=== PATIENT | male | born 1965 | race Caucasian/White ===

== ENCOUNTER 2018-03-08 19:00 | Emergency (ER) | payer OTHER ==
[~2018-03-08] VITALS: Ht 170.2 cm; Wt 99.8 kg
[~2018-03-08 19:00] MED LIST: CLON0.5T PO; DOXE50CA10 PO; LISI-420 PO; TRAM50TA1 PO
[2018-03-08 19:29] VITALS: BP 125/84
[2018-03-08] MEDS ORDERED: OXYC40TE66 PO (19:33)
--- NOTE | 2018-03-08 19:34 | NUR ---
PT RETURNED TO LOBBY
--- NOTE | 2018-03-08 20:19 | NUR ---
PT TO BED 04 VIA W/C.
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
--- NOTE | 2018-03-08 21:05 | NUR ---
ASSUMED CARE OF PT AT THIS TIME. PT AWAITS MD MCKINLEY. [place]. VSS. WILL CONTINUE TO MONITOR.
[2018-03-08] MEDS ORDERED: KETOROLAC 60 MG/2 ML VIAL IM ONE (21:30)
--- NOTE | 2018-03-08 21:38 | NUR ---
pt taken to xray
[2018-03-08 22:55] VITALS: BP 122/88
--- NOTE | 2018-03-08 22:55 | NUR ---
Patient discharged with v/s stable. Written and verbal after care instructions given and explained. Patient alert, oriented and verbalized understanding of instructions. Wheel Chair Assisted with to car. All questions addressed prior to discharge. ID band removed. Patient advised to follow up with PMD. Rx of ROBAXIN, MOTRIN, AND LIDODERM given. Patient educated on indication of medication including possible reaction and side effects. Opportunity to ask questions provided and answered.
== END 2018-03-08 22:55 | disposition home or self-care (01) ==
LOC: MED 19:00
DX: S43.401A Unspecified sprain of right shoulder joint, initial encounter (principal); M25.551 Pain in right hip; M54.5 Low back pain; I10 Essential (primary) hypertension; Z88.5 Allergy status to narcotic agent; Z88.8 Allergy status to other drugs, medicaments and biological substances; Z79.899 Other long term (current) drug therapy; W19.XXXA Unspecified fall, initial encounter; Y93.89 Activity, other specified; Y92.89 Other specified places as the place of occurrence of the external cause; Y99.8 Other external cause status
CPT/HCPCS: 73030; 73502; 96372; 99284; J1885

== ENCOUNTER 2018-06-29 23:20 | Inpatient (IN) | payer OTHER ==
[~2018-06-29] VITALS: Ht 172.7 cm; Wt 133.4 kg
[2018-06-29 23:20] VITALS: BP 111/72
[~2018-06-29 23:20] MED LIST changes: -CLON0.5T PO; -DOXE50CA10 PO; -LISI-420 PO; +OXYC40TE66 PO; -TRAM50TA1 PO
--- NOTE | 2018-06-29 23:20 | NUR ---
PT BIBA FOR ETOH AND 5150. PT STATED HE TOOK 5 GABBAPENTIN. PT WAS PUT ON A HOLD BY [facility] FOR SUICIDAL IDEATION. PT STATED IN ER THAT HE WAS NOT INTENDIING TO HARM SELF. PT HAS SOME ALOC AT TIMES. DIFFICULT TO AROUSE AT TIMES. PT STATED HE DID DRINK ALCOHOL, IT BRENDON UNCLEAR THE MEASUREMENTOF ALCOHOL INTAKE AT THIS TIME. PATIENT STATES PAIN OF 0/10 AT THIS TIME; VSS; PATIENT POSITIONED FOR COMFORT; HOB ELEVATED; BEDRAILS UP X2; BED DOWN. ER MD MADE AWARE OF PT STATUS.
--- NOTE | 2018-06-29 23:20 | NUR ---
PATIENT BIB BLS ON 5150 HOLD TO ER BED 5.
--- NOTE | 2018-06-29 23:25 | NUR ---
PT SITTING UP IN BED, VITALS STABLE. COMFORT MEASURES OFFERRED. PT TOLERATED WELL.
--- NOTE | 2018-06-29 23:30 | NUR ---
CONTACTED POISON CONTROL, SPOKE WITH ANNALISA. RECOMMENDED LABS DRAWN, MONITOR PATIENT 4-6 HOURS. Addendum: 06/29/18 at 2338 by MEDVAUGHNV CONTACTED POISON CONTROL, SPOKE WITH ANNALISA. RECOMMENDED LABS DRAWN, MONITOR PATIENT 4-6 HOURS, FLUID BOLUS.
--- NOTE | 2018-06-29 23:58 | NUR ---
EKG PERFORMED AT BEDSIDE. PT COVERED IN GOWN DURING PROCEDURE.
[2018-06-30 00:19] LABS: BASOPHILS # (AUTO) 0.2 K/uL (0.00-0.22); HEMATOCRIT 33.9 % (36-52); HEMOGLOBIN 11.5 g/dL (12.0-18.0); LYMPHOCYTES # (AUTO) 1.4 K/uL (2.0-11.5); LYMPHOCYTES % (AUTO) 24.4 % (20.5-51.1); MEAN CORPUSCULAR HEMOGLOBIN 31 pg (27-31); MEAN CORPUSCULAR HGB CONC 34 g/dL (33-37); MEAN CORPUSCULAR VOLUME 92.6 fL (80-94); MONOCYTES # (AUTO) 0.5 K/uL (0.8-1.0); MONOCYTES % (AUTO) 8.5 % (1.7-9.3); NEUTROPHILS # (AUTO) 2.7 K/uL (1.8-7.7); NEUTROPHILS % (AUTO) 47.3 % (42.2-75.2); PLATELET COUNT (AUTO) 291 K/uL (140-450); RED BLOOD CELL COUNT(AUTO) 3.66 MIL/uL (4.20-6.10); RED CELL DISTRIBUTION WIDTH 13.4 % (11.6-13.7); WHITE BLOOD COUNT (AUTO) 5.8 K/uL (4.8-10.8)
[2018-06-30 00:28] LABS: ANION GAP 14.9 (8-16); CARBON DIOXIDE 22.5 mmol/L (21-32); CHLORIDE 104 mmol/L (98-107); CREATININE 0.6 mg/dL (0.7-1.3); GFR ARICAN-AMERICAN 183 mL/min (>90); GLUCOSE 105 mg/dL (74-106); POTASSIUM 3.4 mmol/L (3.5-5.1); SODIUM SERUM 138 mmol/L (136-145); UREA NITROGEN, BLOOD 16 mg/dL (7-18)
[2018-06-30 00:30] LABS: EOSINOPHILS % (AUTO) 16.8 % (0.0-4.0)
--- NOTE | 2018-06-30 00:30 | NUR ---
PT SLEEPING, VITALS STABLE. MD AWARE OF STATUS.
[2018-06-30 00:34] LABS: ALBUMIN 3.6 g/dL (3.4-5.0); ASPARTATE AMINOTRANSFERASE 58 U/L (15-37); TOTAL BILIRUBIN 0.3 mg/dL (0.0-1.0)
[2018-06-30 00:35] LABS: ACETAMINOPHEN < 0.5 ug/ml (10-30); SALICYLATE < 2.8 mg/dL (2.8-20.0)
[2018-06-30 00:50] LABS: APPEARANCE,URINE CLEAR (CLEAR); BILIRUBIN,URINE 1+ (NEGATIVE); BLOOD, URINE TRACE-I (NEGATIVE); COLOR,URINE YELLOW (YELLOW); LEUKOCYTE ESTERASE ,URINE NEGATIVE (NEGATIVE); NITRITE, URINE NEGATIVE (NEGATIVE); PH,URINE 6.5 (5.0-9.0); UGLUCOSE NEGATIVE (NEGATIVE)
[2018-06-30 00:57] LABS: BARBITURATE, URINE NEG. ng/ml (NEG <=200); BENZODIAZEPINE, URINE NEG. ng/mL (NEG <=200); CANNABINOID, URINE NEG. ng/mL (NEG <=50); COCAINE, URINE NEG. ng/mL (NEG <=300); OPIATE, URINE NEG. ng/mL (NEG <=2000); PHENCYCLIDINE SCREEN,URINE POS. ng/mL (NEG <=25)
[2018-06-30 01:00] LABS: RBC,URINE 3-10 (FEW) /HPF (0-5); WBC,URINE 0-5 (RARE) /HPF (0-5)
--- NOTE | 2018-06-30 01:31 | NUR ---
PT IS SLEEPING IN [facility] AT THIS TIME. VITALS ARE STABLE. NOTIFED
--- NOTE | 2018-06-30 03:00 | NUR ---
PT SLEEPING IN BED, VITALS STABLE
--- NOTE | 2018-06-30 04:00 | NUR ---
PT SITTING UP IN BED, VITALS STABLE. WAITNG TRANSFER TO THE FLOOR
--- NOTE | 2018-06-30 04:30 | NUR ---
SPOKE TO KAEL FROM POISON CONTROL TO GIVE AN UPDATED STATUS ON PT. PT VITALS STABLE . MADE AWARE.
--- NOTE | 2018-06-30 04:38 | NUR ---
SPOKE TO DR. MCCAULEY FOR PT PLACEMENT. MADE AWARE OF STATUS.
--- NOTE | 2018-06-30 05:11 | NUR ---
EKG PERFORMED AT BEDSIDE. PT COVERED IN GOWN AND BLANKET WITH RN PRESENT.
--- NOTE | 2018-06-30 05:15 | NUR ---
Patient will be admitted to care of . Admited to med surg . Will go to room 109 B. Belongings list completed. Report to tracy bal. vitals stable.
--- NOTE | 2018-06-30 05:15 | NUR ---
Pt report given to RONNELL ARMSTRONG. Transfer of care at this time. VITALS STABLE
[2018-06-30 05:20] VITALS: BP 97/64
--- NOTE | 2018-06-30 05:20 | NUR ---
REPORT RECEIVED FROM ED NURSE AT BEDSIDE. PT ALOC UPON ARRIVAL. ABLE TO GET UP AND WALK FROM [place] TO BED. SLEPT INSTANTANEOUSLY. IV SITE R AC 20G PATENT AND INTACT. SKIN WARM, DRY, AND INTACT. BED LOCKED IN LOW POSITION. PT 51/50.
[2018-06-30] MEDS ORDERED: NACL 0.9% 1,000 ML IV SCH ×2 (05:45→05:50)
--- NOTE | 2018-06-30 05:45 | NUR ---
AMRIT VANESSA RETURNED PHONE CALL. TORB FOR REGULAR DIET AND NS @ 65ML/HR. ORDER IN.
[2018-06-30] MEDS ORDERED: NACL 0.9% 2,000 ML IV ONE (05:50)
--- NOTE | 2018-06-30 07:05 | NUR ---
ASSUMED CONTINUITY OF CARE. NO SIGNS AND SYMPTOMS OF ACUTE DISTRESS NOTICED. INITIAL ASSESSMENT DONE. CALM, QUIET AND COOPERATIVE. NO SUICIDAL THOUGHTS MANIFESTED. KEEP ENVIRONMENT SAFE AND CLOSELY MONITORED BY ALCIDES RUSSELL FOR SUICIDAL PREVENTION.
--- NOTE | 2018-06-30 07:05 | NUR ---
REPORT GIVEN TO AM NURSE AT BEDSIDE. PT IN STABLE CONDITION.
[2018-06-30 08:00] VITALS: BP 120/82
--- NOTE | 2018-06-30 08:00 | NUR ---
Patient's Plan of Care was discussed and reviewed with DECORATOR STORE: DANIEL SERRA
[2018-06-30] MEDS ORDERED: HYDROcodone/APAP 5/325 MG 1 TAB TAB PO PRN (08:50)
--- NOTE | 2018-06-30 09:10 | NUR ---
PATIENT HAS BEEN SCREENED AND CATEGORIZED LOW NUTRITION RISK. PATIENT WILL BE SEEN WITHIN 7 DAYS OF ADMISSION. 07/06/[address]
[2018-06-30] MEDS ORDERED: TRIH2TAB21 PO (11:24)
[2018-06-30] MEDS ORDERED: CLON0.5T PO (11:24)
[2018-06-30 12:00] VITALS: BP 116/67
[2018-06-30] MEDS ORDERED: clonazePAM 0.5 MG TAB PO SCH (13:00)
[2018-06-30] MEDS ORDERED: TRIHEXYPHENIDYL 2 MG TAB PO SCH (13:00)
--- NOTE | 2018-06-30 15:27 | NUR ---
DR. GARIBAY CAME FOR PT. PSYCH EVAL, REVIEWED PT. CHART AND SPOKE TO PT. AT BEDSIDE. PT. CALM AND COOPERATIVE.
--- NOTE | 2018-06-30 15:30 | NUR ---
CM NOTE INITIAL REVIEW FAXED TO [phone] VAUGHN OLIVO # [phone]
--- NOTE | 2018-06-30 15:58 | NUR ---
PER DR. GARIBAY, PT. CLEARED AND CAN BE D/C HOME. INFORMED CHARGE NURSE JAIRO KISER.
--- NOTE | 2018-06-30 16:07 | NUR ---
CHARGE NURSE JAIRO ROSSI -PATTI CALLED DR. IRVING REGARDING PT. D/C ORDER.
[2018-06-30] MEDS ORDERED: INFLUENZA VIRUS VACCINE QUAD 0.5 ML SYR IMVAC SCH (16:15)
[2018-06-30] MEDS ORDERED: PNEUMOCOCCAL VACCINE 23 MCG/0.5 ML VIAL IMVAC SCH (16:15)
--- NOTE | 2018-06-30 16:55 | NUR ---
D/C HOME, AMBULATORY AND HAD STEADY GAIT. AWAKE, ALERT, AND ORIENTED X4. SPEECH CLEAR. NO C/O PAIN. NO SOB, NOTED. CALM AND COOPERATIVE. NO SUICIDAL THOUGHTS OBSERVED. IN STABLE CONDITION. INFORMED CHARGE NURSE JAIRO KISER.
== END 2018-06-30 16:55 | disposition home or self-care (01) | DRG 817 ==
LOC: MED 23:20 → MTU 06-30 04:40
PROVIDERS: ADMIT Hospitalist; ATTEND Hospitalist
DX: T42.6X2A Poisoning by other antiepileptic and sedative-hypnotic drugs, intentional self-harm, initial encounter (principal); G20 Parkinson's disease; R45.851 Suicidal ideations; F32.9 Major depressive disorder, single episode, unspecified; F41.0 Panic disorder [episodic paroxysmal anxiety]; F41.1 Generalized anxiety disorder; M06.9 Rheumatoid arthritis, unspecified; F19.10 Other psychoactive substance abuse, uncomplicated; G89.29 Other chronic pain; M54.9 Dorsalgia, unspecified; F29 Unspecified psychosis not due to a substance or known physiological condition; I10 Essential (primary) hypertension; Z88.5 Allergy status to narcotic agent; Z88.8 Allergy status to other drugs, medicaments and biological substances; Y92.89 Other specified places as the place of occurrence of the external cause; Z79.899 Other long term (current) drug therapy; Z87.891 Personal history of nicotine dependence
CPT/HCPCS: 36415; 71045; 80053; 80299; 80305; 81001; 85025; 87081; 90658; 90732; 93005; 96360; 96361; 99291; G0480; G0482; Q0092

== ENCOUNTER 2018-07-26 17:51 | Inpatient (IN) | payer OTHER ==
[~2018-07-26] VITALS: Ht 175.3 cm; Wt 81.2 kg
[~2018-07-26 17:51] MED LIST changes: +CLON0.5T PO; +TRIH2TAB21 PO
--- NOTE | 2018-07-26 17:51 | NUR ---
Patient BIBA BLS, transferred to bed 6. RN evaluating patient at bedside.
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
[2018-07-26 18:01] VITALS: BP 103/63
--- NOTE | 2018-07-26 18:16 | NUR ---
OFFICER [employer] NOTIFIED SUICIDAL IDEATION BOX NOT CHECKED ALTHOUGH DOCUMENTED PT INTENTIONALLY TOOK PILLS FOR HARM TO SELF --OFFICER WILL COME TO ER TO ADD TO HOLD
--- NOTE | 2018-07-26 18:24 | NUR ---
SPOKE WITH POISON CONTROL [id number] TIGIST SUPPORTIVE MEASURES, DOES NOT ENCOURAGE CHARCOAL OR FLUMAZENIL ONSET IS FAST . OBSERVATION 4-6HRS; --LABS TYLENOL, ASA, CBC, BMP, UTOX
--- NOTE | 2018-07-26 18:30 | NUR ---
DR. GEMMA GARCIA AWARE OF POISON CONTROLS SUGGESTION, DR. MENENDEZ REFUSED SUGGESTIONS. AWAITING DR TOBAR.
[2018-07-26 18:48] LABS: BASOPHILS # (AUTO) 0.1 K/uL (0.00-0.22); BASOPHILS % (AUTO) 0.8 % (0.0-2.0); EOSINOPHILS # (AUTO) 0.6 K/uL (0-0.4); HEMATOCRIT 35.8 % (36-52); HEMOGLOBIN 12.1 g/dL (12.0-18.0); LYMPHOCYTES # (AUTO) 1.3 K/uL (2.0-11.5); LYMPHOCYTES % (AUTO) 17.3 % (20.5-51.1); MEAN CORPUSCULAR HEMOGLOBIN 31 pg (27-31); MEAN CORPUSCULAR HGB CONC 34 g/dL (33-37); MEAN CORPUSCULAR VOLUME 91.4 fL (80-94); MONOCYTES # (AUTO) 0.6 K/uL (0.8-1.0); MONOCYTES % (AUTO) 7.6 % (1.7-9.3); NEUTROPHILS # (AUTO) 5.1 K/uL (1.8-7.7); NEUTROPHILS % (AUTO) 66.3 % (42.2-75.2); PLATELET COUNT (AUTO) 356 K/uL (140-450); RED BLOOD CELL COUNT(AUTO) 3.92 MIL/uL (4.20-6.10); RED CELL DISTRIBUTION WIDTH 13.4 % (11.6-13.7); WHITE BLOOD COUNT (AUTO) 7.8 K/uL (4.8-10.8)
[2018-07-26 18:58] LABS: BARBITURATE, URINE NEG. ng/ml (NEG <=200); BENZODIAZEPINE, URINE NEG. ng/mL (NEG <=200); CANNABINOID, URINE NEG. ng/mL (NEG <=50); COCAINE, URINE NEG. ng/mL (NEG <=300); PHENCYCLIDINE SCREEN,URINE NEG. ng/mL (NEG <=25)
[2018-07-26 19:00] LABS: ANION GAP 11.4 (8-16); CARBON DIOXIDE 26.5 mmol/L (21-32); CREATININE 0.8 mg/dL (0.7-1.3); POTASSIUM 3.9 mmol/L (3.5-5.1)
[2018-07-26 19:07] LABS: ACETAMINOPHEN < 0.5 ug/ml (10-30); SALICYLATE < 2.8 mg/dL (2.8-20.0)
--- NOTE | 2018-07-26 19:10 | NUR ---
Patient appears to be resting comfortably in bed. Vital Signs within normal limits. Respirations even and unlabored. Sitter at bedside
[2018-07-26 19:16] LABS: OPIATE, URINE NEGATIVE ng/mL (NEG <=2000)
[2018-07-26] MEDS ORDERED: NACL 0.9% 1,000 ML IV ONE (19:40)
--- NOTE | 2018-07-26 20:00 | NUR ---
Patient appears to be resting comfortably in bed. Vital Signs within normal limits. Respirations even and unlabored. Sitter at bedside
--- NOTE | 2018-07-26 21:00 | NUR ---
Patient appears to be resting comfortably in bed. Vital Signs within normal limits. Respirations even and unlabored. Sitter at bedside
--- NOTE | 2018-07-26 21:17 | NUR ---
POISON CONTROL CALLED FOR UPDATE ON PT. 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 ER MADE AWARE
--- NOTE | 2018-07-26 22:00 | NUR ---
Patient appears to be resting comfortably in bed. Vital Signs within normal limits. Respirations even and unlabored.
--- NOTE | 2018-07-26 23:00 | NUR ---
Patient appears to be resting comfortably in bed. Vital Signs within normal limits. Respirations even and unlabored. Sitter at bedside
--- NOTE | 2018-07-27 00:10 | NUR ---
Patient appears to be resting comfortably in bed. Vital Signs within normal limits. Respirations even and unlabored. Sitter at bedside
--- NOTE | 2018-07-27 01:36 | NUR ---
Patient appears to be resting comfortably in bed. Vital Signs within normal limits. Respirations even and unlabored. Sitter at bedside
--- NOTE | 2018-07-27 02:00 | NUR ---
PT AWAKE AND AOX4 STATES " I DID NOT TAKE THOSE PILLS, I WAS JUST TRYING TO MAKE MY MAD"
--- NOTE | 2018-07-27 02:30 | NUR ---
DR BALDWIN PSCYHIATRIST RECOMMENDED INPATIENT PSYCH. ER MD MADE AWARE
--- NOTE | 2018-07-27 02:50 | NUR ---
PT HAD AN ~20 SECS SEIZURE LIKE ACTIVITY, AIRWAY CLEAR AND PROTECTED. ER MD AT BEDSIDE TO GIVE 1MG ATIVAN IVP. PT AOX4, GCS 15, NO S/S OF POSTICTAL
[2018-07-27] MEDS ORDERED: LORazepam 2 MG/ML VIAL ONE (02:57)
[2018-07-27] MEDS ORDERED: LORazepam 2 MG/ML VIAL IVP ONE (03:00)
--- NOTE | 2018-07-27 03:50 | NUR ---
Patient appears to be resting comfortably in bed. Vital Signs within normal limits. Respirations even and unlabored. Sitter at bedside
--- NOTE | 2018-07-27 04:50 | NUR ---
Patient appears to be resting comfortably in bed. Vital Signs within normal limits. Respirations even and unlabored. Sitter at bedside
[2018-07-27 05:45] VITALS: BP 95/45
--- NOTE | 2018-07-27 05:45 | NUR ---
RECEIVED PT FROM ER BEDSIDE REPORT ENDORSED. ON 5150 WITH SITTER. PT AWAKE, ALERT AND ORIENTED X 4. CALM, AND ABLE TO VERBALIZE NEEDS. NO AGITATION NOTED AT THIS TIME. PT'S BED AT LOWEST POSITION. VITAL SIGNS WILL BE TAKEN. WILL CONTINUE TO MONITOR
--- NOTE | 2018-07-27 05:55 | NUR ---
Patient will be admitted to [facility]. Admited to MS. Will go to room 109B. Belongings list completed. Report to JANEL ARMSTRONG.
--- NOTE | 2018-07-27 07:11 | NUR ---
ENDORSED TO AM SHIFT BEDSIDE NOTES. LEFT PT SLEEPING. PT CALM. NO SUICIDAL IDEATION NOTED.
--- NOTE | 2018-07-27 07:15 | NUR ---
RECEIVED PT REPORT AT BEDSIDE FROM BRICK SETTER NURSE. PT IS CURRENTLY ASLEEP IN BED. NO S/S OF DISTRESS NOTED AT THIS TIME. IV SITE NOTED IN L AC, 20 GAUGE. PT ON ROOM AIR. BED IS IN LOW POSITION. WILL CONTINUE TO MONITOR.
[2018-07-27 07:28] VITALS: BP 114/45
[2018-07-27 08:00] VITALS: BP 101/61
--- NOTE | 2018-07-27 08:20 | NUR ---
PT DENIES ANY HX OF SEIZURES, STATES "I'VE NEVER HAD A SEIZURE IN MY LIFE"
--- NOTE | 2018-07-27 10:18 | NUR ---
PT IS SITTING QUIETLY ON THE SIDE OF THE BED. NO AGITATION OR COMBATIVE BEHAVIOR. NO S/S OF ACUTE DISTRESS AT THIS TIME. PT FINISHED ALL OF HIS BREAKFAST. CONTINUING TO MONITOR.
--- NOTE | 2018-07-27 10:35 | NUR ---
PT SEEN BY DR. ROMAN
[2018-07-27] MEDS: TRIHEXYPHENIDYL 2 MG TAB PO SCH ×2 (12:11→16:14)
[2018-07-27] MEDS: clonazePAM 0.5 MG TAB PO SCH ×2 (12:13→16:15)
--- NOTE | 2018-07-27 12:23 | NUR ---
PT EATING LUNCH AT THIS TIME. PT NOT AGITATED OR COMBATIVE. BEHAVIOR APPROPRIATE. NO S/S OF DISTRESS, NO C/O PAIN. CONTINUING TO MONITOR.
--- NOTE | 2018-07-27 14:14 | NUR ---
PT ASLEEP AT THIS TIME. PT FINISHED 100% OF HIS LUNCH. NO AGITATION OR COMBATIVENESS, NO S/S OF DISTRESS NOTED. CONTINUING TO MONITOR.
[2018-07-27 15:57] VITALS: BP 113/73
--- NOTE | 2018-07-27 16:29 | NUR ---
PT ALERT AND AWAKE, AND CALM. PT REQUESTED SOME MAGAZINES TO READ TO PASS TIME. VITAL SIGNS STABLE. NO S/S OF DISTRESS. CONTINUING TO MONITOR.
--- NOTE | 2018-07-27 18:39 | NUR ---
PT SEEN BY DR. GAVIRIA. PER DR. GAVIRIA, HE WANTS TO KEEP THE PT ON HOLD FOR FURTHER OBSERVATION.
--- NOTE | 2018-07-27 19:14 | NUR ---
PT REPORT GIVEN TO ENGINE RESEARCH ENGINEER NURSE AT BEDSIDE. PT ENDORSED IN A STABLE CONDITION. SITTER WITH PATIENT.
--- NOTE | 2018-07-27 19:15 | NUR ---
RECEIVED PATIENT AWAKE RESTING. 1:1 SITTER FOR CLOSE OBSERVATION FOR SAFETY. EXPLAINED PLAN OF CARE AND VERBALIZED UNDERSTANDING. BED IN LOW LOCKED. POSITION. SI PRECAUTION APPLIED. WILL CONTINUE TO MONITOR.
[2018-07-27 20:00] VITALS: BP 124/78
--- NOTE | 2018-07-27 21:00 | NUR ---
V/S TAKEN AND RECORDED. PATIENT IN CONSTANT OBSERVATION. 1:1 SITTER FOR CLOSE OBSERVATION. NO S/S OF DISTRESS NOTED AT THIS TIME. WILL CONTINUE TO MONITOR.
[2018-07-27] MEDS ORDERED: TEMAZEPAM 15 MG CAP PO PRN (21:15)
--- NOTE | 2018-07-27 22:21 | NUR ---
Still no beds available at the following facilities: [facility], s/w Selvin. Packet was refaxed. [facility], s/w Jania. [facility], s/w Alondra. [facility], s/w [facility], s/w Rosenda. [facility], s/w Violetta. Will continue to look for bed placement through out shift.
--- NOTE | 2018-07-27 22:28 | NUR ---
Called [facility], no beds available, s/w John, iris was resent
--- NOTE | 2018-07-28 | NUR ---
SEEN PATIENT RESTING COMFORTABLY ON BED. NO SIGN OF SUICIDAL THOUGHT NOTED AT THIS TIME. 1: 1 SITTER FOR CLOSE OBSERVATION.
--- NOTE | 2018-07-28 02:05 | NUR ---
CHECKED PATIENT RESTING ON BED WITH 1:1 SITTER FOR CLOSE OBSERVATION. NO SIGN OF SUICIDAL THOUGHT NOTED AT THIS TIME. WILL CONTINUE TO MONITOR.
--- NOTE | 2018-07-28 04:00 | NUR ---
SEEN PATIENT RESTING COMFORTABLY WITH 1:1 SITTER FOR CLOSE CONSTANT OBSERVATION. SAFETY PRECAUTION APPLIED. WILL CONTINUE TO MONITOR.
--- NOTE | 2018-07-28 05:30 | NUR ---
SEEN PATIENT RESTING WITH CONSTANT OBSERVATION 1:1 SITTER FOR SAFETY. DENIES SUICIDAL IDEATION. SAFETY PRECAUTION IN PLACE. WILL CONTINUE TO MONITOR.
[2018-07-28 06:50] LABS: BASOPHILS # (AUTO) 0.1 K/uL (0.00-0.22); BASOPHILS % (AUTO) 1.4 % (0.0-2.0); EOSINOPHILS # (AUTO) 1.1 K/uL (0-0.4); EOSINOPHILS % (AUTO) 12.4 % (0.0-4.0); HEMATOCRIT 40.4 % (36-52); HEMOGLOBIN 13.6 g/dL (12.0-18.0); LYMPHOCYTES # (AUTO) 2.7 K/uL (2.0-11.5); LYMPHOCYTES % (AUTO) 30.6 % (20.5-51.1); MEAN CORPUSCULAR HEMOGLOBIN 31 pg (27-31); MEAN CORPUSCULAR HGB CONC 34 g/dL (33-37); MEAN CORPUSCULAR VOLUME 92.5 fL (80-94); MONOCYTES # (AUTO) 0.6 K/uL (0.8-1.0); MONOCYTES % (AUTO) 6.5 % (1.7-9.3); NEUTROPHILS # (AUTO) 4.3 K/uL (1.8-7.7); NEUTROPHILS % (AUTO) 49.1 % (42.2-75.2); PLATELET COUNT (AUTO) 369 K/uL (140-450); RED BLOOD CELL COUNT(AUTO) 4.37 MIL/uL (4.20-6.10); RED CELL DISTRIBUTION WIDTH 13.5 % (11.6-13.7); WHITE BLOOD COUNT (AUTO) 8.7 K/uL (4.8-10.8)
[2018-07-28 07:06] LABS: ANION GAP 15.5 (8-16); CARBON DIOXIDE 28.6 mmol/L (21-32); CREATININE 0.8 mg/dL (0.7-1.3); POTASSIUM 4.1 mmol/L (3.5-5.1)
[2018-07-28 07:07] LABS: PHOSPHORUS 5.5 mg/dL (2.5-4.9)
--- NOTE | 2018-07-28 07:10 | NUR ---
ENDORSEMENT GIVEN TO AM SHIFT RN AT BEDSIDE FOR CONTINUITY OF CARE. PATIENT IN STABLE CONDITION.
[2018-07-28 08:04] VITALS: BP 122/78
[2018-07-28] MEDS: clonazePAM 0.5 MG TAB PO SCH ×3 (08:53→17:28)
[2018-07-28] MEDS: TRIHEXYPHENIDYL 2 MG TAB PO SCH ×3 (08:53→17:27)
--- NOTE | 2018-07-28 08:54 | NUR ---
ADMINISTERED MEDS TO PT . TOLERATED WELL. ABLE TO COMMUNICATE , NO ANXIETY. PT CALM AND COOPERATIVE. ASKING IF HE WILL BE GOING HOME TODAY. INFORMED THAT SOON I HAVE DC ORDER, WILL LET HIM KNOW. ADVISED PT TO STAY IN BED PT JUST GOT HIS MEDS,MIGHT CAUSE DIZZINESS , RISK FOR FALL. ADJUSTED HIS BED. PT LYING ON HIS BED. SITTER AT BEDSIDE. ASKED IF HAS ANY SI, STATES HE NEVER HAS THOSE FEELING. WILL CONTINUE TO MONITOR PT.
--- NOTE | 2018-07-28 09:20 | NUR ---
PATIENT HAS BEEN SCREENED AND CATEGORIZED LOW NUTRITION RISK. PATIENT WILL BE SEEN WITHIN 7 DAYS OF ADMISSION. 08/02/[address]
--- NOTE | 2018-07-28 12:36 | NUR ---
CM NOTE PER MER OF [facility] PH# [phone], NO BEDS AVAILABLE AT THIS TIME. PER KENYATTA, EQUIPMENT SERVICE LEAD OF [facility] PH# [phone], NO BEDS AVAILABLE AT THIS TIME. PER [facility] PH# [phone], NO BED AVAILABLE AT THIS TIME BUT REQUESTED TO RE-FAX PACKET TO THEM AT [phone]. PACKET RE-FAXED. PER WAGNER OF [facility] PH# [phone], NO BED AVAILABLE AT THIS TIME BUT REQUESTED TO RE-FAX PACKET TO THEM AT [phone]. PACKET RE-FAXED.
--- NOTE | 2018-07-28 13:35 | NUR ---
ADMINISTERED MEDS TO PT, TOLERATED WELL. PT CALM AND COOPERATIVE, NO SIGN OF DISTRESS NOTED. GAVE TOOTH BRUSH AND PASTE, SITTER AT BEDSIDE. STABLE BEHAVIOR. EXPLAINED HIM THAT PT STILL IN 5150 HOLD, NEEDS TO BE REEVALUATED TO SEE IF HE CAN BE CLEARED BY PSYCH DOCTOR. VERBALIZED UNDERSTANDING. WILL CONTINUE TO MONITOR PT.
--- NOTE | 2018-07-28 13:41 | NUR ---
CM NOTE PER SEBASTIAN OF [facility] PH# [phone], NO BEDS AVAILABLE AT THIS TIME BUT THAT THEY ARE ANTICIPATING DISCHARGES FOR TODAY AND THAT THIS PATIENT IS STILL CURRENTLY ON THEIR LIST. I GAVE HER THE NUMBER TO THE NURSING STATION WHERE PATIENT IS IN CASE A BED BECOMES AVAILABLE AT A LATER TIME TODAY. [place]INA OF [facility] PH# [phone] REQUESTED PACKET TO BE FAXED TO THEM AT [phone]. PACKET FAXED TO [facility] AND I GAVE CAROLINA THE NUMBER TO THE NURSING STATION WHERE PATIENT IS IN CASE A BED BECOMES AVAILABLE AT A LATER TIME TODAY. SABINE OF [facility] PH# [phone] SAID THEY DO NOT HAVE A BED AT THIS TIME BUT THEY ARE ANTICIPATING DISCHARGES TODAY SO TO SEND THEM THE PACKET AT [phone]. I ALSO GAVE SABINE THE NUMBER TO THE NURSING STATION WHERE PATIENT IS IN CASE A BED BECOMES AVAILABLE AT A LATER TIME TODAY. PACKET FAXED TO [facility] [phone].
--- NOTE | 2018-07-28 13:49 | NUR ---
Faxed over paperwork for review to: [facility] s/w [facility] s/w Ary [facility] s/w Arabella No bed vacancies at the following facilities: [facility] s/w Sonia [place] s/w Karena [facility] s/w Hipolito [facility] s/w Mack [facility] [place] s/w Skip [facility] s/w [place] [facility] s/w Yuliya (Reviewing Chart) will continue to look for placement throughout shift.
[2018-07-28 16:00] VITALS: BP 128/75
--- NOTE | 2018-07-28 17:30 | NUR ---
ADMINISTERED MEDS TO PT ORDERED . PT SITTING ON HIS BED. NO SIGN OF DISTRESS NOTED. PT IS CALM AND COOPERATIVE. CALLED NUMBER , X2, TRIED TO MAKE CONTACT WITH JENNY [phone]. PER MAURICE MART, SHE GAVE IN FOR ABOUT PT , BUT WANTED TO TALK TO RN . STAYED ON HOLD X2, COULDN'T REACH ANYONE. WILL CONTINUE TO MONITOR PT.
--- NOTE | 2018-07-28 19:20 | NUR ---
ENDORSED PT TO PM NURSE AT BEDSIDE FOR CONTINUITY OF CARE. PT IN STABLE CONDITION.
--- NOTE | 2018-07-28 19:25 | NUR ---
RECEIVED PATIENT AWAKE RESTING ON BED. 1:1 SITTER FOR CLOSE CONSTANT OBSERVATION. SAFETY PRECAUTION APPLIED. BED IN LOW LOCK POSITION. EXPLAINED PLAN OF CARE. WILL CONTINUE TO MONITOR.
--- NOTE | 2018-07-28 21:00 | NUR ---
SEEN PATIENT AWAKE ON BED. ALL NEEDS ATTENDED. 1: 1 SITTER FOR CLOSE OBSERVATION. NO SIGN OF SUICIDAL THOUGHT NOTED AT THIS TIME. SAFETY PRECAUTION APPLIED. WILL CONTINUE TO MONITOR.
[2018-07-28] MEDS: TEMAZEPAM 15 MG CAP PO PRN (21:41)
[2018-07-29] VITALS: BP 120/78
--- NOTE | 2018-07-29 | NUR ---
CHECKED PATIENT ASLEEP. 1:1 SITTER FOR SAFETY. WILL CONTINUE TO MONITOR.
--- NOTE | 2018-07-29 02:00 | NUR ---
PATIENT ASLEEP COMFORTABLY. NO SI NOTED AT THIS TIME. WILL CONTINUE TO MONITOR.
--- NOTE | 2018-07-29 03:29 | NUR ---
Still no beds available at any of the designated facilities CARMELO [facility]- [facility] Intake [facility]- Luda intake [facility]- Se[facility] intake [facility] - [facility]a intake Car[facility]- LINDA intake Will endorsed to morning shift to continue to look for placement.
--- NOTE | 2018-07-29 04:00 | NUR ---
1:1 SITTER FOR CLOSE CONSTANT OBSERVATION. PATIENT ASLEEP . SAFETY PRECAUTION PROVIDED. ALL NEEDS ATTENDED. NO SIGN OF SUICIDAL THOUGHT NOTED AT THIS TIME.
--- NOTE | 2018-07-29 07:05 | NUR ---
RECEIVED BEDSIDE REPORT FROM PM SHIFT NURSE. PT ASLEEP, RESPIRATIONS EVEN & UNLABORED. 1:1 SITTER AT BEDSIDE.
--- NOTE | 2018-07-29 07:05 | NUR ---
GAVE REPORT TO AM SHIFT RN AT BEDSIDE FOR CONTINUITY OF CARE. PATIENT IN STABLE CONDITION.
[2018-07-29 08:00] VITALS: BP 139/85
--- NOTE | 2018-07-29 09:10 | NUR ---
PT C/O MILD HEADACHE. NO PAIN MEDS ORDERED AT THIS TIME. DR ROMAN PAGED & AWAITING CALL BACK.
[2018-07-29] MEDS: clonazePAM 0.5 MG TAB PO SCH ×3 (09:29→17:05)
[2018-07-29] MEDS: IBUPROFEN 400 MG TAB PO PRN (09:42)
[2018-07-29] MEDS: TRIHEXYPHENIDYL 2 MG TAB PO SCH ×3 (09:43→17:02)
--- NOTE | 2018-07-29 10:50 | NUR ---
Initial review faxed to [facility] along with H&P and CN.
--- NOTE | 2018-07-29 11:15 | NUR ---
PT REQUESTED TO HAVE SHOWER. MALE STAFF ASSISTED PT TO SHOWER ROOM FOR CONTINUOUS MONITORING.
--- NOTE | 2018-07-29 14:15 | NUR ---
PT ASLEEP AT THIS TIME. RESPIRATIONS EVEN & UNLABORED. 1:1 SITTER AT BEDSIDE FOR CONTINUOUS MONITORING.
--- NOTE | 2018-07-29 15:30 | NUR ---
DR DENZEL LI AT BEDSIDE ASSESSING PT.
[2018-07-29 16:00] VITALS: BP 114/75
--- NOTE | 2018-07-29 16:40 | NUR ---
PT SITTING UP IN BED, READING MAGAZINE. NO SIGNS OF DISTRESS. DENIES ANY PAIN OR DISCOMFORT. 1:1SITTER AT BEDSIDE. LEFT AC IV INTACT & ASYPMTOMATIC. SITE WITH GOOD BLOOD RETURN, FLUSHED WITH 10ML NS.
--- NOTE | 2018-07-29 19:12 | NUR ---
REPORT GIVEN TO PM SHIFT NURSE @ PT'S BEDSIDE.
--- NOTE | 2018-07-29 19:13 | NUR ---
RECEIVED REPORT FROM DAY SHIFT RN, FOR CONTINUITY OF CARE.PT IS A/OX4, ON ROOM AIR AND PRIMARILY USES WOLOF. PT IS ABLE TO MAKE NEEDS KNOWN, ABLE TO FOLLOW COMMANDS. PT BREATHS EQUAL AND UNLABORED. PT IS ABLE TO AMBULATE WITH STEADY GAIT AND SKIN IS INTACT. PT HAS A 20G IV TO LEFT AC, ASYMPTOMATIC AND INTACT. DISCUSSED PLAN OF CARE WITH PT, PT VERBALIZED UNDERSTANDING. VITAL SIGNS WITHIN NORMAL LIMITS. PT STABLE, NO SIGNS OF DISTRESS NOTED AT THIS TIME. BED IN LOWEST POSITION, BED ALARM ON. CALL LIGHT WITHIN REACH, WILL CONTINUE TO MONITOR.
[2018-07-29] MEDS: TEMAZEPAM 15 MG CAP PO PRN (20:13)
--- NOTE | 2018-07-29 20:13 | NUR ---
PT STATES HE HAS BEEN UNABLE TO SLEEP IN DAYS AND REQUESTS MEDICATION TO HELP HIM SLEEP. ADMINISTERED TEMAZEPAM ORDERED FOR INSOMNIA, PT TOLERATED WELL.
[2018-07-30] VITALS: BP 122/81
--- NOTE | 2018-07-30 | NUR ---
VITAL SIGNS WITHIN NORMAL LIMITS. PT STABLE, NO SIGNS OF DISTRESS NOTED AT THIS TIME. BED IN LOWEST POSITION, BED ALARM ON. CALL LIGHT WITHIN REACH, WILL CONTINUE TO MONITOR.
[2018-07-30] MEDS: ZOLPIDEM 10 MG TAB PO PRN ×2 (01:12→20:39)
--- NOTE | 2018-07-30 03:57 | NUR ---
Was not able to find any placement at this time [facility]- [facility] intake [place]- [facility] intake Anahi Magaña RN will continue to look alexa fabian patrick to look for beds 7[
--- NOTE | 2018-07-30 07:08 | NUR ---
ENDORSED PT TO DAY SHIFT RN BRITTANY FOR CONTINUITY OF CARE. PT IN STABLE CONDITION.
--- NOTE | 2018-07-30 07:09 | NUR ---
BEDSIDE REPORT RECEIVED FROM PM SHIFT NURSE. PT ASLEEP IN BED, RESPIRATIONS EVEN & UNLABORED. 1:1 SITTER AT BEDSIDE FOR SUICIDE PRECAUTIONS.
[2018-07-30 08:00] VITALS: BP 108/78
--- NOTE | 2018-07-30 09:15 | NUR ---
PT SITTING UP IN BED, VERBALLY RESPONSIVE. NO C/O PAIN. DENIES ANY SUICIDAL IDEATIONS AT THIS TIME. 1:1 SITTER AT BEDSIDE FOR CONTINUOUS MONITORING.
[2018-07-30] MEDS: TRIHEXYPHENIDYL 2 MG TAB PO SCH ×3 (09:37→17:15)
[2018-07-30] MEDS: ESCITALOPRAM 20 MG TAB PO SCH (09:37)
[2018-07-30] MEDS: clonazePAM 0.5 MG TAB PO SCH ×3 (09:41→17:23)
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
--- NOTE | 2018-07-30 14:30 | NUR ---
PT TAKING SHOWER PER PT REQUEST, 1:1 SITTER IN SHOWER FOR CONSTANT MONITORING.
[2018-07-30 16:00] VITALS: BP 112/74
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
--- NOTE | 2018-07-30 18:13 | NUR ---
PT SITTING UP IN BED, EATING DINNER. DENIES ANY PAIN OR DISCOMFORT. 1:1 SITTER AT BEDSIDE.
--- NOTE | 2018-07-30 19:28 | NUR ---
BEDSIDE REPORT GIVEN TO PM SHIFT NURSE JOSHUA.
--- NOTE | 2018-07-30 19:29 | NUR ---
RECEIVED PT IN STABLE CONDITION FROM AM NURSE. PT IS ASLEEP. MED SURG. NO IV ACCESS. STILL WITH 1:1 SITTER FOR /HOLD. WILL CONTINUE TO MONITOR CLOSELY FOR ANY SUICIDAL IDEATION. BED ON LOW POSITION. WILL CONTINUE TO MONITOR.
--- NOTE | 2018-07-30 20:39 | NUR ---
PT SAID HE WANTS SOMETHING FOR SLEEP. RASHIDAIEN PO GIVEN ORDERED. WILL CONTINUE TO MONITOR.
--- NOTE | 2018-07-30 22:00 | NUR ---
PT IS SLEEPING AT THIS TIME. 1;1 SITTER PRESENT.
[2018-07-30 23:57] VITALS: BP 133/48
--- NOTE | 2018-07-31 00:30 | NUR ---
PT AWAKE. VITAL SIGNS TAKEN ,STABLE .
--- NOTE | 2018-07-31 02:30 | NUR ---
PT IS ASLEEP. NO S/S OF ANY DISCOMFORT NOTED. 1:1 SITTER IN ATTENDANCE.
--- NOTE | 2018-07-31 04:39 | NUR ---
No update from contacted hospitals at this time. No bed vacancies found throughout shift. will endorse to morning shift to continue looking for placement.
--- NOTE | 2018-07-31 07:15 | NUR ---
ENDORSED PT IN STABLE CONDITION TO AM NURSE FOR CONTINUITY OF CARE.
--- NOTE | 2018-07-31 07:15 | NUR ---
RECEIVED PT REPORT FROM THE NEW ORDER CLERK NURSE. PT IS AAOX4. MED SURG. NO IV ACCESS. DENIES SI FOR NOW, WILL CONTINUE TO MONITOR CLOSELY FOR ANY SUICIDAL IDEATION. WITH 1:1 SITTER FOR 5150 HOLD.
[2018-07-31 08:00] VITALS: BP 128/80
[2018-07-31] MEDS: IBUPROFEN 400 MG TAB PO PRN (08:39)
[2018-07-31] MEDS: ESCITALOPRAM 20 MG TAB PO SCH (08:39)
[2018-07-31] MEDS: clonazePAM 0.5 MG TAB PO SCH ×3 (08:41→17:23)
[2018-07-31] MEDS: TRIHEXYPHENIDYL 2 MG TAB PO SCH ×3 (10:53→17:21)
--- NOTE | 2018-07-31 13:32 | NUR ---
PT WANTS TO SPEAK TO PSYCHIATRIST, PT WANTS TO CHANGE SOMETHING HE TOLD THE PSYCHIATRIST, PT DENIES SI AND FEELING TO HURT OTHERS. WILL CONTACT PSYCHIATRIST FOR REEVALUATION.
--- NOTE | 2018-07-31 14:30 | NUR ---
BED ASSIGNMENT AT [place] [id number] [address] ([phone], PT REFUSES TO BE TRANSFERED, DR LI PAGED AT THIS TIME TO REQUEST RE-EVAL, PT STATES HE DOES NOT FEEL LIKE HURTING HIMSELF.
--- NOTE | 2018-07-31 14:33 | NUR ---
DR ROMAN IS HERE, PT REQUEST TO SHOWER. DR ROMAN DENIES THE REQUEST FOR NOW.
--- NOTE | 2018-07-31 15:50 | NUR ---
DR MAHONEY'S CALL SERVICE CALLED TO PAGE DR LI TO REQUEST RE-EVAL.
[2018-07-31 16:00] VITALS: BP 126/84
--- NOTE | 2018-07-31 16:59 | NUR ---
CALLED DR LI, PSYCHIATRIST. LEFT A MESSAGE FOR REEVALUATING THE PT. BECAUSE PT WANTS TO GO HOME, REFUSED TO GO TO [facility]. CHARGE NURSE GOMEZ ALVAREZ. CHARGE NURSE CONTACTED DR LI EARLIER TOO, BUT HAS NOT RECEIVED ANY CALL BACK YET.
--- NOTE | 2018-07-31 19:15 | NUR ---
ENDORSED PT TO FIELD PROJECT MANAGER RN. PT IN STABLE CONDITION.
--- NOTE | 2018-07-31 19:16 | NUR ---
RECEIVED PT IN STABLE CONDITION FROM AM NURSE. MED SURG PT . ON / HOLD FOR SUICIDAL IDEATION. STILL WITH 1:1 SITTER. 1:1 SITTER . NO IV ACCESS. BED ON LOW POSITION. WILL CLOSELY MONITOR PT .
[2018-07-31] MEDS: ZOLPIDEM 10 MG TAB PO PRN (22:20)
[2018-07-31 23:30] VITALS: BP 130/85
--- NOTE | 2018-08-01 00:09 | NUR ---
PT IS SLEEPING AT THIS TIME. NO S/S FO ANY DISCOMFORT NOTED.
--- NOTE | 2018-08-01 02:00 | NUR ---
MAD ROUNDS. ASLEEP. STILL WITH 1;1 SITTER.
--- NOTE | 2018-08-01 04:00 | NUR ---
PT ASLEEP. DIRECTOR OF COMMUNITY EDUCATION S/S OF ANY DISCOMFORT NOTED. WILL CONTINUE TO MONITOR.
--- NOTE | 2018-08-01 07:10 | NUR ---
RECEIVED PT REPORT FROM THE FISH CLEANER NURSE. PT IS AAOX4. MED SURG. NO IV ACCESS. DENIES SI FOR NOW, WILL CONTINUE TO MONITOR CLOSELY FOR ANY SUICIDAL IDEATION. WITH 1:1 SITTER FOR 5150 HOLD. PSYCHIATRIST IS COMING TODAY FOR REEVALUATION. DISCUSSED POC WITH PT, PT VERBALIZED UNDERSTANDING.
--- NOTE | 2018-08-01 07:10 | NUR ---
ENDORSED PT IN STABLE CONDITION TO AM NURSE FOR CONTINUITY OF CARE.
[2018-08-01 08:00] VITALS: BP 114/78
[2018-08-01] MEDS: TRIHEXYPHENIDYL 2 MG TAB PO SCH ×2 (09:53→12:27)
[2018-08-01] MEDS: ESCITALOPRAM 20 MG TAB PO SCH (09:53)
[2018-08-01] MEDS: clonazePAM 0.5 MG TAB PO SCH ×2 (09:56→12:29)
--- NOTE | 2018-08-01 10:40 | NUR ---
PT CLEARED BY PSYCHIATRIST DR LI. NO LONGER [id number].
[2018-08-01] MEDS: IBUPROFEN 400 MG TAB PO PRN (12:31)
--- NOTE | 2018-08-01 13:00 | NUR ---
PT DISCHARGED PER MD ORDER, PT'S COUSIN IS HERE TO PICK HIM UP. BELONGINGS LIST COMPLETED, PT DRESSED UP, NO S/S OF DISTRESS ON ROOM AIR. PT SIGNED ALL HIS DISCHARGE PAPERWORK. PT STATED HE WILL FOLLOW UP WITH HIS OWN PSYCHIATRIST. RESOURCE PACKET TO MENTAL HEALTH PROVIDED.
== END 2018-08-01 13:00 | disposition home or self-care (01) | DRG 425 ==
LOC: MED 17:51 → MTU 07-27 05:19
PROVIDERS: ADMIT Hospitalist; ATTEND Hospitalist
DX: E83.52 Hypercalcemia (principal); G20 Parkinson's disease; R45.851 Suicidal ideations; F31.9 Bipolar disorder, unspecified; M19.90 Unspecified osteoarthritis, unspecified site; I10 Essential (primary) hypertension; J45.909 Unspecified asthma, uncomplicated; M06.9 Rheumatoid arthritis, unspecified; F41.9 Anxiety disorder, unspecified; Z88.5 Allergy status to narcotic agent; Z79.899 Other long term (current) drug therapy
CPT/HCPCS: 36415; 80048; 80305; 83735; 84100; 85025; 87081; 96360; 99285; G0480; G0482; J2060

== ENCOUNTER 2018-10-25 00:41 | Emergency (ER) | payer OTHER ==
[~2018-10-25] VITALS: Ht 170.2 cm; Wt 95.3 kg
[2018-10-25 00:41] VITALS: BP 132/88
[~2018-10-25 00:41] MED LIST changes: -OXYC40TE66 PO
--- NOTE | 2018-10-25 00:55 | NUR ---
Pt placed in bed 5 by EMS.
--- NOTE | 2018-10-25 01:17 | NUR ---
PT BIBA FOR SIEZURES. MEDIC REPORTS PT HAD 3 SIEZURES. PT IS AAOX3, SPEECH IS DELAYED, STATES THAT HE IS CONFUSED, DOES NOT KNOW WHY HE IS IN HOSPITAL. STRONG EQUAL BUE AND BLE. PT REPORTS SHARP PAIN AT 9/10 IN LOWER EXTREMITIES, PT STATES THAT HE THINKS THE PAIN IS FROM HIS RA. ER MD TO SEE PT. SIEZURE PADS ARE ALREADY IN USE, UNABLE TO FIND OTHER SIEZURE PADS, PADDED SIDE RAILS WITH BLANKETS AND PILLOWS. WILL CONTINUE TO MONITOR. MEDHX:SEIZURE DISORDER, AND RA
[2018-10-25] MEDS ORDERED: NACL 0.9% 1,000 ML IV ONE ×2 (01:20→02:25)
[2018-10-25] MEDS ORDERED: KETOROLAC 30 MG/ML VIAL IVP ONE (01:20)
[2018-10-25] MEDS ORDERED: levETIRAcetam 1,000 MG in NACL 0.9% 100 ML IV ONE (01:20)
[2018-10-25] MEDS ORDERED: levETIRAcetam 100 MG/ML VIAL IV ONE (01:37)
[2018-10-25 01:52] LABS: BASOPHILS # (AUTO) 0.1 K/uL (0.00-0.22); EOSINOPHILS # (AUTO) 0.5 K/uL (0-0.4); EOSINOPHILS % (AUTO) 4.8 % (0.0-4.0); HEMATOCRIT 39.6 % (36-52); LYMPHOCYTES # (AUTO) 2.5 K/uL (2.0-11.5); LYMPHOCYTES % (AUTO) 24.3 % (20.5-51.1); MEAN CORPUSCULAR HEMOGLOBIN 30 pg (27-31); MEAN CORPUSCULAR HGB CONC 33 g/dL (33-37); MEAN CORPUSCULAR VOLUME 91.2 fL (80-94); MONOCYTES # (AUTO) 0.7 K/uL (0.8-1.0); MONOCYTES % (AUTO) 7.3 % (1.7-9.3); NEUTROPHILS # (AUTO) 6.3 K/uL (1.8-7.7); NEUTROPHILS % (AUTO) 62.6 % (42.2-75.2); PLATELET COUNT (AUTO) 482 K/uL (140-450); RED BLOOD CELL COUNT(AUTO) 4.34 MIL/uL (4.20-6.10); WHITE BLOOD COUNT (AUTO) 10.1 K/uL (4.8-10.8)
[2018-10-25 01:55] LABS: APPEARANCE,URINE CLEAR (CLEAR); BILIRUBIN,URINE NEGATIVE (NEGATIVE); BLOOD, URINE TRACE-I (NEGATIVE); COLOR,URINE YELLOW (YELLOW); LEUKOCYTE ESTERASE ,URINE TRACE (NEGATIVE); NITRITE, URINE NEGATIVE (NEGATIVE); PH,URINE 6.5 (5.0-9.0); UGLUCOSE NEGATIVE (NEGATIVE)
[2018-10-25 02:05] LABS: BARBITURATE, URINE NEG. ng/ml (NEG <=200); BENZODIAZEPINE, URINE NEG. ng/mL (NEG <=200); CANNABINOID, URINE NEG. ng/mL (NEG <=50); COCAINE, URINE NEG. ng/mL (NEG <=300); OPIATE, URINE NEG. ng/mL (NEG <=2000); PHENCYCLIDINE SCREEN,URINE NEG. ng/mL (NEG <=25)
[2018-10-25 02:13] LABS: RBC,URINE NONE SEEN /HPF (0-5); WBC,URINE 0-5 (RARE) /HPF (0-5)
[2018-10-25 02:21] LABS: ALBUMIN 4.2 g/dL (3.4-5.0); ANION GAP 15.4 (8-16); CARBON DIOXIDE 25.6 mmol/L (21-32); CREATININE 0.7 mg/dL (0.7-1.3); TOTAL BILIRUBIN 0.2 mg/dL (0.0-1.0)
[2018-10-25] MEDS ORDERED: MORPHINE SULFATE 4 MG/ML SYR IVP ONE (02:25)
--- NOTE | 2018-10-25 02:30 | NUR ---
PT IS ATTEMPTING TO LEAVE, HAD PT RETURN TO BED. PT COULD NOT STATE HOW HE PLANS TO GET HOME. PT SPEECH IS SLURRED AND DELAYED. TURNED OFF LIGHTS IN ATTEMPT TO HAVE PT RELAX.
[2018-10-25] MEDS ORDERED: MORPHINE SULFATE 4 MG/ML SYR ONE (02:49)
[2018-10-25] MEDS ORDERED: LORazepam 2 MG/ML VIAL IVP ONE ×2 (03:00→03:45)
--- NOTE | 2018-10-25 03:00 | NUR ---
PT IS ATTEMPTING TO LEAVE AGAIN, PT HAS BECOME AGITATED AND IS BEATING HIS CHEST STATING "[place]". PT STILL CANNOT STATE A PLAN TO GO HOME AND STATES HE CAN'T CALL ANYONE TO PICK HIM UP BECAUSE "EVERYONE IS WORKING". ATTEMPTED TO CALL PT AT [phone] BUT IT IS A NON WORKING NUMBER. LAUREN VANESSA INFORMED.
--- NOTE | 2018-10-25 03:40 | NUR ---
PT IS STILL RESTLESS AFTER ADMINISTRATION OF ATIVAN. PT IS WALKING AOURND ER FLOOR, REFUSEING TO GO BACK TO HIS ROOM OR SIT ON BED. ER MD NOTIFIED.
--- NOTE | 2018-10-25 04:00 | NUR ---
PT IS STILL AGITATED AFTER SECOND DOSE OF ATIVAN. PT IS YELLING AT THE CERTIFIED ALCOHOL AND DRUG COUNSELOR IN ENGLISH, SLAMING IS PHONE DONE ON THE DRAWERS IN HIS ROOM, PACING BACK AND FORTH, MAKING INTENSE EYE CONTACT. ER NOTIFIED.
--- NOTE | 2018-10-25 04:05 | NUR ---
PT ATTEMPTING TO PULL OUT HIS IV LINE, PT GAIT IS UNSTEADY AND REFUSES TO SIT DOWN. ER MD NOTIFIED.
--- NOTE | 2018-10-25 04:17 | NUR ---
PUT PT IN SOFT RESTRAINTS FOR AGRESSIVE BEHAVOR AND AGITATION.
[2018-10-25] MEDS ORDERED: KCL 20 MEQ/WATER INJ PREMIX 100 ML IV ONE (04:25)
--- NOTE | 2018-10-25 04:30 | NUR ---
PT STILL AGITATED, CUASING IN SPANISHING CALLING STAFF "ANUJA". PT IN RESTRAINTS, 2 FINGERS INBETWEEN RESTRAINTS AND SKIN. NO DISCOLORATION OF EXTREMITIES, PULSES PRESENT, CAP REFIL<3 SEC, FULL RANGE OF MOTION.
--- NOTE | 2018-10-25 04:45 | NUR ---
PT STILL AGITATED, CUASING IN SPANISHING CALLING STAFF "ANUJA". PT IN RESTRAINTS, 2 FINGERS INBETWEEN RESTRAINTS AND SKIN. NO DISCOLORATION OF EXTREMITIES, PULSES PRESENT, CAP REFIL<3 SEC, FULL RANGE OF MOTION. CHARGE NURSE RIA ASSISTED PT WITH URINATION AT THIS TIME.
[2018-10-25 04:57] LABS: ACETAMINOPHEN < 0.5 ug/ml (10-30); SALICYLATE < 2.8 mg/dL (2.8-20.0)
--- NOTE | 2018-10-25 05:00 | NUR ---
PT ATTEMPTING TO CHEW OUT OF RESTRAINT ON R WRIST. SKIN AND CIRCULATION CHECK WITHIN NORMAL LIMITS. OFFERED PT URINAL AND WATER.
--- NOTE | 2018-10-25 05:15 | NUR ---
PT IS CALLING FOR GLORIA, WHEN I ASKED WHO GLORIA IS HE DID NOT ANSWER. SKIN AND CIRCULATION CHECK WITHIN NORMAL LIMITS. OFFERED PT URINAL AND WATER.
--- NOTE | 2018-10-25 05:30 | NUR ---
REMOVED PT R WRIST FROM RESTRAINTS SO HE COULD EAT AND DRINK. PT ATTEMPTED TO REMOVE OTHER HAND FROM RESTRAINT. PUT R WRIST BACK IN RESTRAINTS. SKIN AND CIRCULATION CHECK WITHIN NORMAL LIMITS.
--- NOTE | 2018-10-25 05:45 | NUR ---
PT attempting to remove R wrist strap with mouth. Skin and circulation check within normal limits. offered PT urinal and water.
--- NOTE | 2018-10-25 05:51 | NUR ---
Attempted to call PT from number out of pt phone at [phone], no answer.
--- NOTE | 2018-10-25 06:00 | NUR ---
PT medication has finished at this time. PT is calm, and able to verbalize a plan to get home. PT speech is clear. Removed restraints from PT. PT gait is steady. Provided bus pass for PT
[2018-10-25 06:15] VITALS: BP 121/88
--- NOTE | 2018-10-25 06:15 | NUR ---
Patient discharged with v/s stable. Written and verbal after care instructions given and explained. Patient verbalized understanding. Ambulatory with steady gait. All questions addressed prior to discharge. Advised to follow up with PMD. Provided bus pass for PT.
== END 2018-10-25 06:15 | disposition home or self-care (01) ==
LOC: MED 00:41
DX: E87.6 Hypokalemia (principal); R56.9 Unspecified convulsions; J45.909 Unspecified asthma, uncomplicated; I10 Essential (primary) hypertension; Z88.6 Allergy status to analgesic agent; Z88.5 Allergy status to narcotic agent; Z79.899 Other long term (current) drug therapy
CPT/HCPCS: 36415; 70450; 71045; 80053; 80173; 80305; 81001; 82550; 84484; 85025; 93005; 96365; 96375; 96376; 99284; G0480; G0482; J1885; J1953; J2060; J2270; J3480; 96367; J7030

== ENCOUNTER 2018-11-30 09:47 | Emergency (ER) | payer OTHER ==
[~2018-11-30] VITALS: Ht 170.2 cm; Wt 95.3 kg
--- NOTE | 2018-11-30 09:50 | NUR ---
PT BIBA BLS TO BED 7
[2018-11-30 09:53] VITALS: BP 120/81
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
--- NOTE | 2018-11-30 10:16 | NUR ---
PT BEING EVALUATED BY DR GOINS
--- NOTE | 2018-11-30 10:17 | NUR ---
Patient being evaluated by physician at bedside.
[2018-11-30] MEDS ORDERED: traMADol 50 MG TAB PO ONE (10:30)
--- NOTE | 2018-11-30 10:48 | NUR ---
PT RETURNED FROM CT VIA WC
[2018-11-30 11:48] VITALS: BP 128/86
== END 2018-11-30 11:48 | disposition home or self-care (01) ==
LOC: MED 09:47
DX: M54.5 Low back pain (principal); R07.81 Pleurodynia; I10 Essential (primary) hypertension; J45.909 Unspecified asthma, uncomplicated; G40.909 Epilepsy, unspecified, not intractable, without status epilepticus; Z88.5 Allergy status to narcotic agent; Z88.6 Allergy status to analgesic agent; Z76.5 Malingerer [conscious simulation]
CPT/HCPCS: 71250; 99284

== ENCOUNTER 2018-12-24 03:45 | Emergency (ER) | payer OTHER ==
[~2018-12-24] VITALS: Ht 170.2 cm; Wt 93.9 kg
[2018-12-24 03:45] VITALS: BP 125/82
[2018-12-24] MEDS ORDERED: MORPHINE SULFATE 4 MG/ML SYR IM ONE (04:00)
--- NOTE | 2018-12-24 04:02 | NUR ---
DR. IGNACIO AT BEDSIDE FOR EVALUATION.
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
--- NOTE | 2018-12-24 04:15 | NUR ---
called and no answer at this time. Pt refusing to call his at this time. Pt is pending discharge and advised to call his to pick him up. Pt is requesting medications for Parkinson's but does not know what he is taking. Dr. Hopper advised patient to call his primary doctor in the morning for follow up.
[2018-12-24 04:30] VITALS: BP 127/82
--- NOTE | 2018-12-24 04:30 | NUR ---
PT STATES HE WILL NOT CALL HIS . PT IS A&OX4 WITH VSS. LEON. ALL EXTREMITIES STRONG. REFUSED TO SIGN BUT TOOK DC PAPERWORK. PT DEMANDING MORE MEDICATIONS BUT DR IGNACIO INSTRUCTS PT TO F/U WITH PRIMARY FOR CHRONIC CARE. PT CONTINUE TO ARGUE WITH STAFF DEMANDING MORE MEDICATIONS. PT REFUSED TO DISCUSS DC INSTRUCTION AFTER INSTRUCTION WAS GIVEN. PT AMBULATED OUT OF ER WITHOUT SIGNING PAPERWORK.
== END 2018-12-24 04:30 | disposition home or self-care (01) ==
LOC: MED 03:45
DX: R56.9 Unspecified convulsions (principal); M54.5 Low back pain; I10 Essential (primary) hypertension; J45.909 Unspecified asthma, uncomplicated; Z79.899 Other long term (current) drug therapy; Z88.6 Allergy status to analgesic agent; Z88.5 Allergy status to narcotic agent
CPT/HCPCS: 96372; 99283; J2270

== ENCOUNTER 2019-01-10 13:48 | Emergency (ER) | payer OTHER ==
[~2019-01-10] VITALS: Ht 170.2 cm; Wt 81.6 kg
[2019-01-10 13:48] VITALS: BP 125/81
--- NOTE | 2019-01-10 13:48 | NUR ---
PT BIBA FOR EVALUATION OF ETOH, PT SNORING ON [facility] BED, IV IN PLACE TO LEFT AC WITH FLUIDS ATTACHED. PT AROUSABLE TO VERBAL STIMULI. VSS. NO BEDS AVAILABLE AT THIS TIME.
--- NOTE | 2019-01-10 14:32 | NUR ---
PATIENT BIB BLS TO ER BED 1.
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
[2019-01-10] MEDS ORDERED: NACL 0.9% 2,000 ML IV SCH (15:26)
--- NOTE | 2019-01-10 15:35 | NUR ---
PT GIVEN 2000 ML BOLUS ORDERED TO LAC.
--- NOTE | 2019-01-10 15:50 | NUR ---
UNABLE TO OBTAIN URINE SPECIMEN.
[2019-01-10 15:51] LABS: BASOPHILS # (AUTO) 0.1 K/uL (0.00-0.22); BASOPHILS % (AUTO) 0.9 % (0.0-2.0); EOSINOPHILS # (AUTO) 0.8 K/uL (0-0.4); EOSINOPHILS % (AUTO) 8.1 % (0.0-4.0); HEMOGLOBIN 12.5 g/dL (12.0-18.0); LYMPHOCYTES # (AUTO) 2.5 K/uL (2.0-11.5); LYMPHOCYTES % (AUTO) 26.3 % (20.5-51.1); MEAN CORPUSCULAR HEMOGLOBIN 31 pg (27-31); MEAN CORPUSCULAR HGB CONC 34 g/dL (33-37); MEAN CORPUSCULAR VOLUME 90.4 fL (80-94); MONOCYTES # (AUTO) 0.6 K/uL (0.8-1.0); MONOCYTES % (AUTO) 6.4 % (1.7-9.3); NEUTROPHILS # (AUTO) 5.5 K/uL (1.8-7.7); NEUTROPHILS % (AUTO) 58.3 % (42.2-75.2); PLATELET COUNT (AUTO) 427 K/uL (140-450); RED BLOOD CELL COUNT(AUTO) 4.09 MIL/uL (4.20-6.10); WHITE BLOOD COUNT (AUTO) 9.4 K/uL (4.8-10.8)
--- NOTE | 2019-01-10 15:55 | NUR ---
NS 0.9 % 2000 ML BOLUS ORDERED. TOLERATING WELL.
[2019-01-10 16:14] LABS: ANION GAP 13.5 (8-16); ASPARTATE AMINOTRANSFERASE 24 U/L (15-37); CARBON DIOXIDE 25.8 mmol/L (21-32); CHLORIDE 104 mmol/L (98-107); CREATININE 0.7 mg/dL (0.7-1.3); GFR ARICAN-AMERICAN 152 mL/min (>90); GLUCOSE 92 mg/dL (74-106); POTASSIUM 3.3 mmol/L (3.5-5.1); SODIUM SERUM 140 mmol/L (136-145); TOTAL BILIRUBIN 0.4 mg/dL (0.0-1.0); UREA NITROGEN, BLOOD 15 mg/dL (7-18)
--- NOTE | 2019-01-10 16:30 | NUR ---
URINE SPECIMEN OBTAINED
[2019-01-10 17:48] LABS: APPEARANCE,URINE CLEAR (CLEAR); BILIRUBIN,URINE NEGATIVE (NEGATIVE); COLOR,URINE YELLOW (YELLOW); LEUKOCYTE ESTERASE ,URINE NEGATIVE (NEGATIVE); NITRITE, URINE NEGATIVE (NEGATIVE); UGLUCOSE NEGATIVE (NEGATIVE)
[2019-01-10 17:49] LABS: BLOOD, URINE NEGATIVE (NEGATIVE)
[2019-01-10 18:04] LABS: BARBITURATE, URINE NEG. ng/ml (NEG <=200); BENZODIAZEPINE, URINE NEG. ng/mL (NEG <=200); CANNABINOID, URINE NEG. ng/mL (NEG <=50); COCAINE, URINE NEG. ng/mL (NEG <=300); OPIATE, URINE NEG. ng/mL (NEG <=2000); PHENCYCLIDINE SCREEN,URINE POS. ng/mL (NEG <=25)
--- NOTE | 2019-01-10 18:10 | NUR ---
NS 0.9% BOLUS ORDERED DONE AT THIS TIME. TOLERATED WELL.
[2019-01-10 18:40] VITALS: BP 112/70
--- NOTE | 2019-01-10 18:40 | NUR ---
Patient discharged with v/s stable. Written and verbal after care instructions given and explained. Patient verbalized understanding. Ambulatory with steady gait. All questions addressed prior to discharge. Advised to follow up with PMD.
== END 2019-01-10 18:40 | disposition home or self-care (01) ==
LOC: MED 13:48
DX: F10.129 Alcohol abuse with intoxication, unspecified (principal); F15.10 Other stimulant abuse, uncomplicated; F19.10 Other psychoactive substance abuse, uncomplicated; J45.909 Unspecified asthma, uncomplicated; I10 Essential (primary) hypertension; G20 Parkinson's disease; Z88.6 Allergy status to analgesic agent; Z88.5 Allergy status to narcotic agent; Z79.899 Other long term (current) drug therapy
CPT/HCPCS: 36415; 70450; 71045; 80053; 80305; 81003; 82948; 84484; 85025; 93005; 99284; G0482; Q0092

== ENCOUNTER 2019-01-11 10:16 | Emergency (ER) | payer OTHER ==
[~2019-01-11] VITALS: Ht 170.2 cm; Wt 81.6 kg
[2019-01-11 10:22] VITALS: BP 114/80
--- NOTE | 2019-01-11 10:34 | NUR ---
BROUGHT IN BY EMS FROM [facility]. PT WAS SEEN IN OUR ER YESTERDAY. FOUND LAYING ON SIDEWALK, NO OBVIOUS TRAUMA NOTED. ALTERED, CLEAR SPEECH WHEN AWAKEN, MOVING ALL EXTREMITIES. CONNECTED TO THE MONITOR AND VITALS SIGNS OBTAINED. ER MD AWARE, AWAITING FOR EVALUATION.
--- NOTE | 2019-01-11 10:44 | NUR ---
PT IS SLEEPING, CLEAR SPEECH WHEN AWAKEN. BLOOD SUGAR 73. PT INFORMED ABOUT THE NEED OF URINE SAMPLE.
[2019-01-11] MEDS ORDERED: NALOXONE PFS 2 MG/2 ML SYR IVP ONE (10:50)
--- NOTE | 2019-01-11 10:59 | NUR ---
Dr. Dykes evaluating patient at bedside.
--- NOTE | 2019-01-11 11:40 | NUR ---
attempted x3 iv starts---no success
--- NOTE | 2019-01-11 11:51 | NUR ---
no change after narcan iv ---pt remains somnolent, reactive to pressure point stimuli self reposition in [facility]
--- NOTE | 2019-01-11 12:20 | NUR ---
Dr. Dykes re-evaluating patient at bedside.
--- NOTE | 2019-01-11 14:12 | NUR ---
PT REFUSED DICK CATH INSERTION FOR URINE COLECTION. ENCOURAGED PT TO ATTEMPT TO USE URINAL BUT STRONGLY REFUSED.
--- NOTE | 2019-01-11 14:29 | NUR ---
PT VOIDED. URINE SAMPLE SENT TO LAB.
--- NOTE | 2019-01-11 14:35 | NUR ---
sitting edge of jerilyn, awake alert oriented name place time ----denies dizziness
--- NOTE | 2019-01-11 14:45 | NUR ---
security will attempt to find shoes for pt as ems only found 1 shoe=-----also requested bus pass house sup notified
[2019-01-11 14:50] VITALS: BP 117/82
--- NOTE | 2019-01-11 14:51 | NUR ---
Patient discharged with v/s stable. Written and verbal after care instructions given and explained. Patient refused to sign discharge paperwork. Ambulatory with steady gait. Pt was provided with a bus pass.
--- NOTE | 2019-01-11 14:51 | NUR ---
bus pass and pair of sandals provided to pt---pt refused recovery sheet
[2019-01-11 15:56] LABS: BARBITURATE, URINE NEG. ng/ml (NEG <=200); BENZODIAZEPINE, URINE POS. ng/mL (NEG <=200); CANNABINOID, URINE NEG. ng/mL (NEG <=50); COCAINE, URINE NEG. ng/mL (NEG <=300); OPIATE, URINE NEG. ng/mL (NEG <=2000); PHENCYCLIDINE SCREEN,URINE POS. ng/mL (NEG <=25)
== END 2019-01-11 14:51 | disposition home or self-care (01) ==
LOC: MED 10:16
DX: F12.10 Cannabis abuse, uncomplicated (principal); F11.10 Opioid abuse, uncomplicated; F15.20 Other stimulant dependence, uncomplicated; I10 Essential (primary) hypertension; J45.909 Unspecified asthma, uncomplicated; F20.9 Schizophrenia, unspecified; F31.9 Bipolar disorder, unspecified; F17.200 Nicotine dependence, unspecified, uncomplicated; Z88.5 Allergy status to narcotic agent; Z88.6 Allergy status to analgesic agent; Z79.899 Other long term (current) drug therapy
CPT/HCPCS: 80305; 82948; 96374; 99283; C1758; J2310

== ENCOUNTER 2019-03-03 21:37 | Emergency (ER) | payer OTHER ==
[~2019-03-03] VITALS: Ht 170.2 cm; Wt 95.3 kg
[2019-03-03 21:37] VITALS: BP 154/79
--- NOTE | 2019-03-03 21:47 | NUR ---
53 Y/O M BIBA S/P FALL AT STORE. FALL OCCURED 1 HOUR PRIOR TO ARRIVAL. 10/10 PAIN, SHARP AND INTERMINTENT. NO LOC AT TIME OF FALL. GCS 15. NO VISION CHANGES. SPEECH CLEAR AND COHERENT. NO OBVIOUS INJURIES NOTED. PT STATED "TAKES KEPPRA, GABAPENTIN, AND SEROQUEL BUT I HAVENT TAKEN IT BECAUSE IM WAITING FOR THE REFILL ON SATURDAY. THIS HAPPENED ALREADY TWICE THIS WEEK." SEIZURES PRECAUTIONS IN PLACE. ERMD NOTIFIED. WILL CONTINUE TO MONITOR. -HX: SIEXURES, BIPOLAR DISORDER, AND RA
--- NOTE | 2019-03-03 23:12 | NUR ---
PT AWAKE. VSS AT THIS TIME. BED IN LOWEST POSTION. WILL CONTINUE TO MONITOR.
[2019-03-03] MEDS ORDERED: KETOROLAC 60 MG/2 ML VIAL IM ONE (23:40)
[2019-03-03] MEDS ORDERED: QUEtiapine FUMARATE 25 MG TAB PO ONE (23:40)
[2019-03-03] MEDS ORDERED: levETIRAcetam 500 MG TAB PO ONE (23:40)
[2019-03-04] MEDS ORDERED: QUEtiapine FUMARATE 25 MG TAB ONE (00:20)
--- NOTE | 2019-03-04 00:43 | NUR ---
PT ASLEEP. VISIBLE CHEST RISE AND FALL. AROUSABLE TO NAME. WILL CONTINUE TO MONITOR.
[2019-03-04 01:35] VITALS: BP 107/74
== END 2019-03-04 01:35 | disposition home or self-care (01) ==
LOC: MED 21:37
DX: S09.90XA Unspecified injury of head, initial encounter (principal); R56.9 Unspecified convulsions; J45.909 Unspecified asthma, uncomplicated; I10 Essential (primary) hypertension; Z88.5 Allergy status to narcotic agent; Z88.8 Allergy status to other drugs, medicaments and biological substances; Z79.899 Other long term (current) drug therapy; W19.XXXA Unspecified fall, initial encounter; Y93.89 Activity, other specified; Y92.89 Other specified places as the place of occurrence of the external cause; Y99.8 Other external cause status
CPT/HCPCS: 96372; 99283; J1885

== ENCOUNTER 2019-05-10 09:53 | Emergency (ER) | payer OTHER ==
[~2019-05-10] VITALS: Ht 170.2 cm; Wt 86.2 kg
[2019-05-10 09:55] VITALS: BP 145/80
[2019-05-10 10:56] LABS: BASOPHILS # (AUTO) 0.1 K/uL (0.00-0.22); BASOPHILS % (AUTO) 1.2 % (0.0-2.0); EOSINOPHILS # (AUTO) 0.5 K/uL (0-0.4); EOSINOPHILS % (AUTO) 5.8 % (0.0-4.0); HEMATOCRIT 40.2 % (36-52); HEMOGLOBIN 13.7 g/dL (12.0-18.0); LYMPHOCYTES # (AUTO) 1.8 K/uL (2.0-11.5); LYMPHOCYTES % (AUTO) 21.8 % (20.5-51.1); MEAN CORPUSCULAR HEMOGLOBIN 31 pg (27-31); MEAN CORPUSCULAR HGB CONC 34 g/dL (33-37); MEAN CORPUSCULAR VOLUME 89.7 fL (80-94); MONOCYTES # (AUTO) 0.6 K/uL (0.8-1.0); MONOCYTES % (AUTO) 7.5 % (1.7-9.3); NEUTROPHILS # (AUTO) 5.1 K/uL (1.8-7.7); NEUTROPHILS % (AUTO) 63.7 % (42.2-75.2); PLATELET COUNT (AUTO) 378 K/uL (140-450); RED BLOOD CELL COUNT(AUTO) 4.48 MIL/uL (4.20-6.10); RED CELL DISTRIBUTION WIDTH 13.1 % (11.6-13.7); WHITE BLOOD COUNT (AUTO) 8.1 K/uL (4.8-10.8)
[2019-05-10 11:18] LABS: ALBUMIN 4.1 g/dL (3.4-5.0); ANION GAP 14.8 (8-16); ASPARTATE AMINOTRANSFERASE 22 U/L (15-37); CARBON DIOXIDE 25.2 mmol/L (21-32); CHLORIDE 101 mmol/L (98-107); CREATININE 0.7 mg/dL (0.7-1.3); GFR ARICAN-AMERICAN 152 mL/min (>90); GLUCOSE 103 mg/dL (74-106); SODIUM SERUM 138 mmol/L (136-145); TOTAL BILIRUBIN 0.6 mg/dL (0.0-1.0); UREA NITROGEN, BLOOD 13 mg/dL (7-18)
[2019-05-10 11:19] LABS: ACETAMINOPHEN < 0.5 ug/ml (10-30); SALICYLATE < 2.8 mg/dL (2.8-20.0)
[2019-05-10 11:43] LABS: APPEARANCE,URINE HAZY (CLEAR); BILIRUBIN,URINE 1+ (NEGATIVE); BLOOD, URINE 1+ (NEGATIVE); COLOR,URINE ORANGE (YELLOW); LEUKOCYTE ESTERASE ,URINE NEGATIVE (NEGATIVE); NITRITE, URINE NEGATIVE (NEGATIVE); UGLUCOSE NEGATIVE (NEGATIVE)
[2019-05-10 11:44] LABS: BARBITURATE, URINE NEG. ng/ml (NEG <=200); BENZODIAZEPINE, URINE NEG. ng/mL (NEG <=200); CANNABINOID, URINE NEG. ng/mL (NEG <=50); COCAINE, URINE NEG. ng/mL (NEG <=300); OPIATE, URINE NEG. ng/mL (NEG <=2000); PHENCYCLIDINE SCREEN,URINE NEG. ng/mL (NEG <=25)
[2019-05-10 11:53] LABS: RBC,URINE 11-20 (MOD) /HPF (0-5); WBC,URINE 0-5 /HPF (0-5)
[2019-05-10 11:54] LABS: CALCIUM OXALATE CRYSTALS,UR 0-10 /HPF (None Seen)
[2019-05-10] MEDS: POTASSIUM CHLORIDE 10 MEQ TABER PO ONE (11:55)
[2019-05-10] MEDS: LORazepam 0.5 MG TAB PO ONE (14:45)
[2019-05-10 15:04] VITALS: BP 122/62
== END 2019-05-10 15:04 | disposition home or self-care (01) ==
LOC: MED 09:53
DX: F41.9 Anxiety disorder, unspecified (principal); G47.00 Insomnia, unspecified; I10 Essential (primary) hypertension; J45.909 Unspecified asthma, uncomplicated; F14.10 Cocaine abuse, uncomplicated; F15.10 Other stimulant abuse, uncomplicated; Z88.5 Allergy status to narcotic agent; Z88.6 Allergy status to analgesic agent; Z79.899 Other long term (current) drug therapy; Z86.59 Personal history of other mental and behavioral disorders; Z86.69 Personal history of other diseases of the nervous system and sense organs; Z59.0 Homelessness
CPT/HCPCS: 36415; 80053; 80305; 81001; 85025; 99283; G0480; G0482

== ENCOUNTER 2019-12-10 07:37 | Emergency (ER) | payer MEDICAID, OTHER ==
[~2019-12-10] VITALS: Ht 170.2 cm; Wt 86.2 kg
[2019-12-10 07:42] VITALS: BP 134/56
[2019-12-10] MEDS ORDERED: KETOROLAC 60 MG/2 ML VIAL IM ONE (08:00)
[2019-12-10 08:50] VITALS: BP 130/60
== END 2019-12-10 08:50 | disposition home or self-care (01) ==
LOC: MED 07:37
DX: M25.572 Pain in left ankle and joints of left foot (principal)
CPT/HCPCS: 96372; 99283; J1885

== ENCOUNTER 2020-02-12 11:26 | Emergency (ER) | payer OTHER ==
[~2020-02-12] VITALS: Ht 177.8 cm; Wt 102.1 kg
[2020-02-12 11:27] VITALS: BP 174/108
--- NOTE | 2020-02-12 11:32 | NUR ---
Patient ambulated to bed 7. RN evaluating patient at bedside.
--- NOTE | 2020-02-12 11:46 | NUR ---
54/M feeling anxious after running out of home meds Klonopin 1 week ago. Also out of Depakote. Requesting refill for both meds. AOx4. Hx- bipolar, depression, parkinson's, anxiety
--- NOTE | 2020-02-12 11:53 | NUR ---
Dr. Prince evaluating pt at bedside.
[2020-02-12 12:05] VITALS: BP 140/83
--- NOTE | 2020-02-12 12:05 | NUR ---
Patient discharged with v/s stable. Written and verbal after care instructions given and explained. Patient alert, oriented and verbalized understanding of instructions. Ambulatory with steady gait. All questions addressed prior to discharge. ID band removed. Patient advised to follow up with PMD. Rx of Klonopin and Depakote given. Patient educated on indication of medication including possible reaction and side effects. Opportunity to ask questions provided and answered.
== END 2020-02-12 12:05 | disposition home or self-care (01) ==
LOC: MED 11:26
DX: R44.0 Auditory hallucinations (principal); J45.909 Unspecified asthma, uncomplicated; I10 Essential (primary) hypertension; Z76.0 Encounter for issue of repeat prescription; Z88.5 Allergy status to narcotic agent; Z88.6 Allergy status to analgesic agent; Z79.899 Other long term (current) drug therapy
CPT/HCPCS: 99281; 99283

== ENCOUNTER 2020-02-16 13:22 | Inpatient (IN) | payer OTHER ==
[~2020-02-16] VITALS: Ht 172.7 cm; Wt 99.8 kg
--- NOTE | 2020-02-16 13:22 | NUR ---
PT VERA ALS TO ER BED 11
[2020-02-16 13:32] VITALS: BP 158/96
[2020-02-16] MEDS ORDERED: LORazepam 2 MG/ML VIAL IVP ONE ×2 (13:50→15:00)
[2020-02-16] MEDS ORDERED: LORazepam 2 MG/ML VIAL ONE ×2 (13:50→15:00)
[2020-02-16] MEDS ORDERED: NACL 0.9% 1,000 ML IV ONE (13:55)
--- NOTE | 2020-02-16 14:00 | NUR ---
Pt taken to CT scan via tj
[2020-02-16 14:08] LABS: BASOPHILS % (AUTO) 0.4 % (0.0-2.0); EOSINOPHILS # (AUTO) 0.5 K/uL (0-0.4); HEMATOCRIT 37.7 % (36-52); HEMOGLOBIN 12.6 g/dL (12.0-18.0); LYMPHOCYTES # (AUTO) 1.4 K/uL (2.0-11.5); LYMPHOCYTES % (AUTO) 27.2 % (20.5-51.1); MEAN CORPUSCULAR HEMOGLOBIN 31 pg (27-31); MEAN CORPUSCULAR HGB CONC 33 g/dL (33-37); MONOCYTES # (AUTO) 0.5 K/uL (0.8-1.0); MONOCYTES % (AUTO) 9.4 % (1.7-9.3); NEUTROPHILS # (AUTO) 2.7 K/uL (1.8-7.7); PLATELET COUNT (AUTO) 344 K/uL (140-450); RED BLOOD CELL COUNT(AUTO) 4.01 MIL/uL (4.20-6.10); RED CELL DISTRIBUTION WIDTH 13.3 % (11.6-13.7); WHITE BLOOD COUNT (AUTO) 5.1 K/uL (4.8-10.8)
[2020-02-16 14:30] LABS: ACETAMINOPHEN < 0.5 ug/ml (10-30); SALICYLATE < 2.8 mg/dL (2.8-20.0)
[2020-02-16] MEDS ORDERED: ALBUTEROL SULFATE/IPRATROPIU 3 ML SOL IH ONE (14:30)
[2020-02-16] MEDS ORDERED: LACTULOSE 20 GM/30 ML UDC PO ONE (14:40)
--- NOTE | 2020-02-16 14:40 | NUR ---
RT AT BEDSIDE FOR BREATHING TREATMENT.
[2020-02-16 14:41] LABS: ALBUMIN 3.9 g/dL (3.4-5.0); ASPARTATE AMINOTRANSFERASE 17 U/L (15-37); CARBON DIOXIDE 25.8 mmol/L (21-32); CHLORIDE 107 mmol/L (98-107); CREATININE 0.8 mg/dL (0.6-1.3); GFR ARICAN-AMERICAN 130 mL/min (>90); GLUCOSE 150 mg/dL (74-106); POTASSIUM 3.8 mmol/L (3.5-5.1); SODIUM SERUM 142 mmol/L (136-145); TOTAL BILIRUBIN 0.3 mg/dL (0.0-1.0); UREA NITROGEN, BLOOD 10 mg/dL (7-18)
[2020-02-16] MEDS ORDERED: diphenhydrAMINE 50 MG/ML VIAL IVP ONE ×2 (14:55→16:35)
[2020-02-16] MEDS ORDERED: HALOPERIDOL IM 5 MG/ML VIAL IVP ONE ×2 (14:55→15:35)
[2020-02-16] MEDS: NACL 0.9% 1,000 ML IV SCH (14:59)
[2020-02-16] MEDS ORDERED: ONDANSETRON 4 MG/2 ML VIAL IVP PRN (15:00)
--- NOTE | 2020-02-16 15:34 | NUR ---
PT HAS BEEN MEDICATED FOR GROWING AGGITATION AND AGGRESSIVENESS---FREQUEN REDIRECTION REQUIRED---REMAIN AGGITATED MD NOTIFIED
--- NOTE | 2020-02-16 16:20 | NUR ---
ATTEMPTED TO INSERT NGT UNSUCCESSFUL----MD NOTIFIED OG ATTEMPT FOR PO MED
--- NOTE | 2020-02-16 16:54 | NUR ---
PT APPEARING TO SETTLE IN---REDUCED AGGRESSIVE BEHAVIOR---
[2020-02-16 17:20] VITALS: BP 127/67
--- NOTE | 2020-02-16 17:20 | NUR ---
RECEIVED PATIENT FROM ED NURSE AMALIA FOR CONTINUITY OF CARE. PATIENT IS AAOX1, VERY CONFUSED. DX WITH HEPATIC ENCEPHALOPATHY. RESPIRATIONS EVEN AND UNLABORED, ROOM AIR. HAS SURGICAL MASK ON. HX OF ASTHMA. VISIBLE CHEST RISE AND FALL NOTED, ON TELE MONITORING. HX OF HTN. ABDOMEN SOFT AND NONTENDER. SKIN WARM, DRY, AND INTACT. REDNESS ON THE LEFT CHEEK. BEDREST. BED IN LOW POSITION. BED ALARM ACTIVATED. WILL CONTINUE TO MONITOR.
--- NOTE | 2020-02-16 17:27 | NUR ---
Pt transferred to Tele via [facility] WITH EMT KANA REPORT GIVEN TO PRINCESS ARMSTRONG
--- NOTE | 2020-02-16 17:30 | NUR ---
MRSA NARES SWAB COLLECTED. VS: BP 126/67, HR 108, TEMP 99.3, RESP 22, O2SAT 96% ROOM AIR. WILL CONTINUE TO MONITOR.
--- NOTE | 2020-02-16 17:45 | NUR ---
SITTER 1:[address]
--- NOTE | 2020-02-16 17:55 | NUR ---
CHARGE NURSE KATHY PAGED DR. BARONE FOR RESTRAINTS ORDER. WILL WAIT FOR CALL BACK.
--- NOTE | 2020-02-16 18:20 | NUR ---
RECEIVED AND ORDER FOR SOFT WRIST RESTRAINTS AND ATIVAN 1MG IVP/IM PRN. WILL CARRY OUT ORDERS
--- NOTE | 2020-02-16 18:35 | NUR ---
DISCONNECTED TELE MONITORING AND IVF
[2020-02-16] MEDS: LORazepam 2 MG/ML VIAL IM/IVP PRN ×2 (18:38→22:16)
--- NOTE | 2020-02-16 18:38 | NUR ---
GIVEN 1MG ATIVAN IVP. EXPLAINED MEDICATION. PATIENT IS VERY UNCOOPERATIVE
--- NOTE | 2020-02-16 18:39 | NUR ---
ATIVAN WASTED 0.5 ML.
--- NOTE | 2020-02-16 19:12 | NUR ---
ENDORSED PATIENT TO THE SOLDERER TORCH NURSE FOR CONTINUITY OF CARE. PATIENT IS IN STABLE CONDITION. SOFT WRIST RESTRAINTS APPLIED. PATIENT CONTINUES TO GET OUT OF BED. BED ALARM ACTIVATED.
--- NOTE | 2020-02-16 19:15 | NUR ---
RECEIVED PT IN STABLE CONDITION FROM AM NURSE. SLEEPING. NO S/S OF ANY DISCOMFORT NOR ANY DISTRESS NOTED. ON TELE MONITOR. HAS BILATERAL WRIST RESTRAINT DUE TO CONFUSION. WITH HL ON THE LT AC G#20. IVF TO START. BED ON LOW POSITION. CLOSE MONITORING NEEDED. SIDE RAILS UP X2, AND PADDED FOR SEIZURE PRECAUTION. CALL LIGHT PLACED WITHIN REACH. WILL CONTINUE TO MONITOR.
[2020-02-16 20:00] VITALS: BP 145/97
[2020-02-16] MEDS: LACTULOSE 20 GM/30 ML UDC PO SCH (21:12)
[2020-02-16] MEDS ORDERED: HALOPERIDOL IM 5 MG/ML VIAL IM PRN (21:50)
[2020-02-16] MEDS ORDERED: HALOPERIDOL IM 5 MG/ML VIAL ONE (21:51)
--- NOTE | 2020-02-16 21:51 | NUR ---
PT VERY CONFUSED AND AGITATED ABLE TO REMOVE WRIST RESTRAINT BY SELF. WALKED OUT OF THE ROOM AND RUN ON THE HALLWAY. CAN'T CONTROL. CALLED DR. BARONE, DR. VALLES HUMAN RESOURCES ASSOCIATE. CALLED BACK MADE HIM AWARE . WITH ORDER CARRIED OUT.
--- NOTE | 2020-02-16 22:16 | NUR ---
PT STILL VERY AGITATED, CONFUSED AND COMBATIVE. GET OUT OF THE ROOM AGAIN . ASKED ASSISTANCE FROM SECURITY AND OTHER MALE NURSES. ATIVAN 1 MG IVP GIVEN NEEDED. WILL CONTINUE TO MONITOR.
--- NOTE | 2020-02-16 22:50 | NUR ---
PT SLEEPING AT THIS TIME. WILL CONTINUE TO MONITOR.
--- NOTE | 2020-02-16 23:35 | NUR ---
TALKED TO DR. VALLES TO CLARIFY ABOUT THE CT FACIAL WITHOUT CONTRAST PREVIOUSLY ORDERED. HE SAID STILL HAS TO BE DONE TOMORROW.
[2020-02-16 23:44] LABS: APPEARANCE,URINE CLEAR (CLEAR); BILIRUBIN,URINE NEGATIVE (NEGATIVE); BLOOD, URINE NEGATIVE (NEGATIVE); COLOR,URINE YELLOW (YELLOW); LEUKOCYTE ESTERASE ,URINE NEGATIVE (NEGATIVE); NITRITE, URINE NEGATIVE (NEGATIVE); UGLUCOSE NEGATIVE (NEGATIVE)
[2020-02-16 23:57] LABS: BARBITURATE, URINE NEGATIVE ng/ml (NEG <=200); BENZODIAZEPINE, URINE POSITIVE ng/mL (NEG <=200); CANNABINOID, URINE NEGATIVE ng/mL (NEG <=50); COCAINE, URINE NEGATIVE ng/mL (NEG <=300); OPIATE, URINE NEGATIVE ng/mL (NEG <=2000); PHENCYCLIDINE SCREEN,URINE NEGATIVE ng/mL (NEG <=25)
--- NOTE | 2020-02-17 00:30 | NUR ---
PT IS ASLEEP. NO SOB NOR DISCOMFORT NOTED.
[2020-02-17] MEDS ORDERED: ALBUTEROL 0.083% 2.5 MG/3 ML NEBU INH PRN (01:15)
--- NOTE | 2020-02-17 01:15 | NUR ---
PT HAS SOME WHEEZING. PAGED DR. VALLES . CALLED BACK . MADE AWARE WITH ORDER FOR O2 2L NC AND ALBUTEROL 2/5 MG INH PRN Q4H BREATHING TREATMENT.
--- NOTE | 2020-02-17 01:25 | NUR ---
PT GOT UP AGAIN AND UNABLE TO GET BACK TO BED. SECURITY WAS CALLED TO HELP HIM BACK AND STAY IN BED FOR HE IS WHEEZING.
--- NOTE | 2020-02-17 01:40 | NUR ---
PT BACK TO BED AGAIN AND O2 2LNC STARTED. NO SOB NOTED. WILL CONTINUE TO MONITOR.
[2020-02-17] MEDS: NACL 0.9% 1,000 ML IV SCH (03:29)
--- NOTE | 2020-02-17 04:33 | NUR ---
PT AGITATED, GOT OUT OF BED,UNSTEADY . HALDOL IM GIVEN BY PATTI PLASCENCIACURTAIN INSPECTOR. WILL CONTINUE TO MONITOR.
--- NOTE | 2020-02-17 06:00 | NUR ---
RESTRAINT HAS BEEN OFF SINCE 2199 FOR PT BECOME MORE CONFUSED, COMBATIVE AND AGITATED.ALWAYS TRIED TO REMOVE AND THERE WAS POSSIBILITY OF HURTING THE ARMS/ WRIST . SITTER IN ATTENDANCE AT ALL TIMES.
--- NOTE | 2020-02-17 07:15 | NUR ---
RECEIVED PATIENT FROM FLIGHT TEST ENGINEER NURSE FOR CONTINUITY OF CARE. PATIENT IS AAOX1, VERY CONFUSED. DX WITH HEPATIC ENCEPHALOPATHY. RESPIRATIONS EVEN AND UNLABORED, ROOM AIR. VISIBLE CHEST RISE AND FALL NOTED, NO TELE MONITORING ATTACHED BECAUSE PATIENT IS PULLING IT. ABDOMEN SOFT AND NONTENDER. SKIN WARM, DRY, AND INTACT. REDNESS ON THE LEFT CHEEK. SOFT WRIST RESTRAINTS NON APPLIED DUE TO POSSIBILITY OF HURTING OR BREAKING ARMS/WRIST FROM FORCEFUL PULLING. BEDREST. BED IN LOW POSITION. BED ALARM ACTIVATED. WILL CONTINUE TO MONITOR.
--- NOTE | 2020-02-17 07:15 | NUR ---
ENDORSED PT IN STABLE CONDITION TO AM NURSE FOR CONTINUITY OF CARE.
[2020-02-17 08:07] LABS: BASOPHILS # (AUTO) 0.1 K/uL (0.00-0.22); EOSINOPHILS # (AUTO) 0.5 K/uL (0-0.4); EOSINOPHILS % (AUTO) 7.7 % (0.0-4.0); HEMATOCRIT 36.8 % (36-52); HEMOGLOBIN 12.2 g/dL (12.0-18.0); LYMPHOCYTES # (AUTO) 1.5 K/uL (2.0-11.5); LYMPHOCYTES % (AUTO) 22.9 % (20.5-51.1); MEAN CORPUSCULAR HEMOGLOBIN 31 pg (27-31); MEAN CORPUSCULAR HGB CONC 33 g/dL (33-37); MEAN CORPUSCULAR VOLUME 94.1 fL (80-94); MONOCYTES # (AUTO) 0.7 K/uL (0.8-1.0); MONOCYTES % (AUTO) 10.5 % (1.7-9.3); NEUTROPHILS # (AUTO) 3.8 K/uL (1.8-7.7); NEUTROPHILS % (AUTO) 57.9 % (42.2-75.2); PLATELET COUNT (AUTO) 307 K/uL (140-450); RED CELL DISTRIBUTION WIDTH 13.6 % (11.6-13.7); WHITE BLOOD COUNT (AUTO) 6.6 K/uL (4.8-10.8)
--- NOTE | 2020-02-17 08:15 | NUR ---
PATIENT IS EXERCISING IN HIS ROOM AT THIS TIME. 1:1 SITTER BY THE DOOR.
[2020-02-17] MEDS: LACTULOSE 20 GM/30 ML UDC PO SCH (08:20)
--- NOTE | 2020-02-17 08:20 | NUR ---
GIVEN MORNING MEDICATIONS PO. LOVENOX SUBQ IN THE RIGHT UPPER ARM. PLATELET IS 307. MEDICATION EDUCATION GIVEN. 1:[address] PATIENT IS OFF RESTRAINTS AT THIS TIME. WILL CONTINUE TO MONITOR.
[2020-02-17 08:21] LABS: ALBUMIN 3.7 g/dL (3.4-5.0); CARBON DIOXIDE 26.6 mmol/L (21-32); CREATININE 0.7 mg/dL (0.6-1.3); MAGNESIUM 2.1 mg/dL (1.8-2.4); POTASSIUM 3.6 mmol/L (3.5-5.1); TOTAL BILIRUBIN 0.4 mg/dL (0.0-1.0)
--- NOTE | 2020-02-17 08:52 | NUR ---
PATIENT HAS BEEN SCREENED AND CATEGORIZED LOW NUTRITION RISK. PATIENT WILL BE SEEN WITHIN 7 DAYS OF ADMISSION. 02/23/[address]
[2020-02-17] MEDS ORDERED: ENOXAPARIN 40 MG/0.4 ML SYR SUBQ SCH (09:00)
[2020-02-17] MEDS ORDERED: PANTOPRAZOLE 40 MG INJ VIAL IVP SCH (09:00)
--- NOTE | 2020-02-17 10:51 | NUR ---
PATIENT IS CONFUSED. STATING HE WANTS TO GO HOME. 1:[address] WILL CONTINUE TO MONITOR
--- NOTE | 2020-02-17 11:30 | NUR ---
DC PLANN[age] YRS OLD MALE PATIENT WAS ADMITTED FROM HOME WITH A DX OF HEPATIC ENCEPHALOPATHY. PT HAS AN HX OF HTN, ,ASTHMA, SEIZURE DISORDER, ANXIETY AND DEPRESSION. CT HEAD SHOWED NO ACUTE ABNORMALITY AND CXR DID NOT SHOW ANY ACUTE INFILTRATE . AMMONIA LEVEL WAS 188 . ADMINISTERED LACTULOSE ,IVF FOR HYDRATION . CONTINUE HOME MEDS .DC PLAN TO GO HOME WHEN STABLE CM TO FOLLOW.
--- NOTE | 2020-02-17 11:30 | NUR ---
PATIENT ELOPED WITH IV INTACT. WILL CALL [facility]
--- NOTE | 2020-02-17 11:32 | NUR ---
CALLED SECURITY. PATIENT STATED HE IS GOING HOME AND THAT HIS IS OUTSIDE TO PICK HIM UP.
--- NOTE | 2020-02-17 11:56 | NUR ---
CALLED [employer] FOR PATIENT'S ELOPEMENT.
--- NOTE | 2020-02-17 12:20 | NUR ---
[employer] CALLED AND STATED THAT PATIENT DO NOT RESIDE AT THE ADDRESS GIVEN. CALLED PHONE NUMBER X2 -- [phone], NO ANSWER. CALLED [phone], X2-- NO ANSWER.
--- NOTE | 2020-02-17 12:30 | NUR ---
DR. LIZABETH ALVAREZ.
== END 2020-02-17 11:35 | disposition left against medical advice (07) | DRG 279 ==
LOC: MED 13:22 → MTU 15:03
PROVIDERS: ADMIT Hospitalist; ATTEND Hospitalist
DX: K72.90 Hepatic failure, unspecified without coma (principal); F19.10 Other psychoactive substance abuse, uncomplicated; F41.9 Anxiety disorder, unspecified; G40.909 Epilepsy, unspecified, not intractable, without status epilepticus; I10 Essential (primary) hypertension; J45.909 Unspecified asthma, uncomplicated; Z88.6 Allergy status to analgesic agent; Z88.5 Allergy status to narcotic agent; Z79.899 Other long term (current) drug therapy
CPT/HCPCS: 36415; 70450; 71045; 80053; 80305; 81003; 82140; 83690; 83735; 85025; 87081; 94640; 96361; 96372; 96374; 96375; 96376; 99291; C9113; G0480; G0482; J1200; J1630; J1650; J2060; J7030; Q0092

== ENCOUNTER 2020-10-13 03:35 | Emergency (ER) | payer OTHER ==
[~2020-10-13] VITALS: Ht 177.8 cm; Wt 80.3 kg
[2020-10-13 03:54] VITALS: BP 129/79
--- NOTE | 2020-10-13 03:57 | NUR ---
YULI ASSESSED PATIENT IN TRIAGE. PATIENT REFUSED XRAY. "I JUST WANT PAIN MANAGEMENT."
[2020-10-13 04:09] VITALS: BP 129/79
--- NOTE | 2020-10-13 04:09 | NUR ---
PATIENT EVALUATED, TREATED, AND D/C BY ERMD. NO NURSING INTERVENTION NEEDED.
--- NOTE | 2020-10-13 04:09 | NUR ---
Patient discharged with v/s stable. Written and verbal after care instructions given and explained. Patient alert, oriented and verbalized understanding of instructions. Ambulatory with steady gait. All questions addressed prior to discharge. ID band removed. Patient advised to follow up with PMD. Rx of MELOXICAM, HYDROXYZINE HYDROCHLORIDE given. Patient educated on indication of medication including possible reaction and side effects. Opportunity to ask questions provided and answered.
== END 2020-10-13 04:09 | disposition home or self-care (01) ==
LOC: MED 03:35
DX: M25.561 Pain in right knee (principal); G47.00 Insomnia, unspecified; J45.909 Unspecified asthma, uncomplicated; I10 Essential (primary) hypertension; Z88.6 Allergy status to analgesic agent; Z88.5 Allergy status to narcotic agent; Z79.899 Other long term (current) drug therapy
CPT/HCPCS: 99283